=== PATIENT | female | born 1990 | race American Indian/Alaskan Native ===

== ENCOUNTER 2019-01-05 06:07 | Inpatient (IN) | payer OTHER ==
--- NOTE | 2019-01-05 07:51 | C.PDOC ---
History Of Present Illness 28 year old female with PMHx of HTN presents to the ED complaining of bilateral leg swelling. Reports her sister noticed the swelling a few weeks ago but she thought it would go away by walking. Denies any trauma, shortness of breath, chest pain, fever, chills, calf tenderness, or any other complaints. Reports she is noncompliant with HTN medications because she forgets. 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 State they are concerned because she has been noncompliant with medications for several weeks. Denies chest pain, SOB, numbness, weakness, vision changes, headache, dizziness. Time Seen by Provider: 01/05/19 07:13 Chief Complaint (Nursing): Lower Extremity Problem/Injury History Per: Patient History/Exam Limitations: no limitations Onset/Duration Of Symptoms: Days Current Symptoms Are (Timing): Still Present Past Medical History Reviewed: Historical Data, Nursing Documentation, Vital Signs Vital Signs: Last Vital Signs Temp 98.1 F 01/05/19 06:20 Pulse 84 01/05/19 06:20 Resp 14 01/05/19 06:20 BP 166/114 H 01/05/19 06:20 Pulse Ox 98 01/05/19 06:20 Primary Care Provider: Non [facility] Provider, - Medical History PMH: HTN Other PMH: Conn's disease Surgical History: No Surg Hx Family History: States: No Known Family Hx - Social History Hx Alcohol Use: No Hx Substance Use: No - Immunization History Hx Tetanus Toxoid Vaccination: Yes Hx Influenza Vaccination: No Hx Pneumococcal Vaccination: No Review Of Systems Except As Marked, All Systems Reviewed And Found Negative. Constitutional: Negative for: Fever, Chills Cardiovascular: Positive for: Edema (bilateral feet edema ). Negative for: Chest Pain Respiratory: Negative for: Cough, Shortness of Breath Gastrointestinal: Negative for: Nausea, Vomiting, Diarrhea Neurological: Negative for: Weakness, Numbness Physical Exam - Physical Exam Appears: Non-toxic, No Acute Distress Skin: Warm, Dry, No Rash Head: Atraumatic, Normacephalic Eye(s): bilateral: Normal Inspection, PERRL, EOMI Nose: Normal Oral Mucosa: Moist Throat: No Erythema, No Exudate Neck: Normal ROM, Supple Chest: Symmetrical, No Tenderness, No Ecchymosis, No Subcutaneous Emphysema Cardiovascular: Rhythm Regular, No Friction Rub, No Murmur Respiratory: Normal Breath Sounds, No Rales, No Rhonchi, No Wheezing Gastrointestinal/Abdominal: Soft, No Tenderness, No Guarding, No Rebound, Other (Obese ) Back: Normal Inspection, No CVA Tenderness Extremity: Pedal Edema (B/L), No Calf Tenderness, Capillary Refill (< 2 sec), No Deformity, No Swelling Extremity: Bilateral: Normal Color And Temperature, Normal ROM Pulses: Left Dorsalis Pedis: Normal, Right Dorsalis Pedis: Normal Neurological/Psych: Oriented x3, Normal Speech, Normal Motor Gait: Steady ED Course And Treatment - Laboratory Results Result Diagrams: 01/05/19 08:09 01/05/19 08:09 ECG: Interpreted By Me ECG Rhythm: Sinus Rhythm ECG Interpretation: Abnormal Interpretation Of ECG: inverted T waves in leads III, aVF, V2-V5 Rate From EC (bpm) O2 Sat by Pulse Oximetry: 98 (RA) Pulse Ox Interpretation: Normal - Radiology CXR: Interpreted by Me CXR Interpretation: Yes: Cardiomegaly. No: Infiltrates Medical Decision Making Medical Decision Making: Plan - EKG - CXR - Bloodwork BP was found to be elevated. Metoprolol PO and hydralazine IV ordered. The patient was found to have hypokalemia, PO K-Dur and IV potassium ordered. The patient refused IV potassium because she states it hurts too much. The p atient was found to have an abnormal EKG, inverted T waves in the lateral leads. Trop and Pro-BNP are WNLs. Aspirin ordered. Old records reviewed and there is no prior records or previous visits to compare. The case was discussed with Dr. Mejía who agrees to admit the patient to telemetry. Disposition - Disposition Disposition: HOSPITALIZED Disposition Time: 12:48 Condition: GUARDED - POA Present On Arrival: None - Clinical Impression Clinical Impression: Hypokalemia, Abnormal EKG, Hypertensive urgency - PA / PERFORMANCE ARCHITECT / Resident Statement MD/DO has reviewed & agrees with the documentation as recorded. - Scribe Statement The provider has reviewed the documentation as recorded by the Scribe Elke Paris All medical record entries made by the Scribe were at my direction and personally dictated by me. I have reviewed the chart and agree that the record accurately reflects my personal performance of the history, physical exam, medical decision making, and the department course for this patient. I have also personally directed, reviewed, and agree with the discharge instructions and disposition.
[2019-01-05 08:14] LABS: BASO # 0.1 K/uL (0.0-0.2); BASO % 1.5 % (0.0-2.0); EOS # 0.3 K/uL (0.0-0.7); EOS % 3.3 % (0.0-4.0); HEMOGLOBIN 11.2 g/dL (11.0-16.0); LYMPH # 3.2 K/uL (1.0-4.3); LYMPH % 39.8 % (20.0-40.0); MEAN CELL VOLUME 80.1 fL (81.0-99.0); MEAN CORPUSCULAR HEMOGLOBIN 27.3 pg (27.0-31.0); MEAN PLATELET VOLUME 8.1 fL (7.2-11.7); MONO # 0.5 K/uL (0.0-0.8); MONO % 6.5 % (0.0-10.0); NEUT % 48.9 % (50.0-75.0); NRBC % 0.1 % (0.0-2.0); RBC 4.12 Mil/uL (3.80-5.20); RED CELL DISTRIBUTION WIDTH 14.8 % (11.5-14.5); WHITE BLOOD COUNT 8.1 K/uL (4.8-10.8)
[2019-01-05 08:31] LABS: ALB/GLOB RATIO 1.1 (1.0-2.1); ALBUMIN 4.1 g/dL (3.5-5.0); ALT/SGPT 20 U/L (9-52); AST/SGOT 43 U/L (14-36); BLOOD UREA NITROGEN 17 mg/dL (7-17); CALCIUM 8.9 mg/dl (8.6-10.4); GFR NON-AFRICAN AMERICAN > 60
[2019-01-05 08:40] LABS: B-TYPE NATRIURETIC PEPTIDE 101 pg/mL (0-450)
--- NOTE | 2019-01-05 09:37 | RAD ---
Date of service: 01/05/2019 HISTORY: leg swelling COMPARISON: None available. TECHNIQUE: 1 view obtained. FINDINGS: LUNGS: Left basilar atelectasis. PLEURA: No significant pleural effusion identified, no pneumothorax apparent. CARDIOVASCULAR: Heart is enlarged. Aorta ectatic and uncoiled. No aortic atherosclerotic calcification present. OSSEOUS STRUCTURES: No significant abnormalities. VISUALIZED UPPER ABDOMEN: Normal. OTHER FINDINGS: None. IMPRESSION: Cardiomegaly. Left basilar atelectasis.
[2019-01-05] MEDS ORDERED: Metoprolol Succinate 50 mg XL Tab PO STA (10:16)
[2019-01-05] MEDS ORDERED: Potassium Chloride 20 mEq/15 ml LIQ UD PO STA (11:41)
[2019-01-05] MEDS ORDERED: Potassium Chloride 20 mEq/15 ml LIQ UD ONE (11:54)
[2019-01-05] MEDS: Potassium Chloride 20 mEq ER Tab PO SCH ×2 (12:54→17:20)
[2019-01-05] MEDS ORDERED: Potassium Chloride 20 mEq ER Tab PO ONE (12:55)
--- NOTE | 2019-01-05 13:30 | CP.PCM.HP ---
<José Chavez - Last Filed: 01/05/19 18:05> History of Present Illness - History of Present Illness History of Present Illness: H&P Hospitalist service CC "high blood pressure" HPI: Patient is a 28 year old female with history of Conn's syndrome who presents after patient has had persistent high blood pressure at home. Patient reportedly has not taken medication since November. She states she is unsure why she is not taking her medication, she states she is tired because she is taking care of her baby. She had her baby last August 2017, not currently . She denies fevers, chills, headache, dizziness, lightheadedness, chest pain, shortness of breath, palpitations, abdominal pain, nausea, vomiting, diarrhea, constipation, dysuria, urinary frequency, leg pain. Sister Jennifer states patient was brought in because of persistent high blood pressure. As per mother, on telephone, patient has a history of alcohol syndrome, the mental capacity of a 12-15 year old and finished high school. PMH: alcohol syndrome, Conn's disease, obstructive sleep apnea PSH: C section Home meds: uncertain Allergies: NKDA Social history: denies tobacco, alcohol, drug use. Lives with sisters. Not working, receives SSI. Family history: noncontributory Real Estate Rental Agent: Dr. Edwards Riveter: Dr. Ballesteros PMD: in [place] Present on Admission - Present on Admission Any Indicators Present on Admission: No Review of Systems - Constitutional Constitutional: absent: Chills, Fever, Headache - EENT Eyes: absent: Change in Vision Ears: absent: Tinnitus Nose/Mouth/Throat: absent: Nasal Congestion, Sore Throat - Cardiovascular Cardiovascular: absent: Chest Pain, Dyspnea, Lightheadedness, Palpitations - Respiratory Respiratory: absent: Cough, Dyspnea - Gastrointestinal Gastrointestinal: absent: Abdominal Pain, Constipation, Diarrhea, Nausea, Vomiting - Genitourinary Genitourinary: absent: Difficulty Urinating, Dysuria - Musculoskeletal Musculoskeletal: absent: Back Pain, Stiffness - Neurological Neurological: absent: Dizziness, Headaches, Syncope - Psychiatric Psychiatric: absent: Anxiety, Depression Past Patient History - Past Social History Smoking Status: Never Smoked - CARDIAC Hx Hypertension: Yes - PSYCHIATRIC Hx Substance Use: No Meds Allergies/Adverse Reactions: Allergies Allergy/AdvReac Type Severity Reaction Status Date / Time No Known Allergies Allergy Unverified 01/05/19 06:27 Physical Exam - Constitutional Appears: Well, Non-toxic, No Acute Distress - Head Exam Head Exam: ATRAUMATIC, NORMOCEPHALIC - Eye Exam Eye Exam: EOMI, PERRL - ENT Exam ENT Exam: Mucous Membranes Moist - Neck Exam Neck exam: Positive for: Full Rom. Negative for: Tenderness - Respiratory Exam Respiratory Exam: Decreased Breath Sounds. absent: Rhonchi, Wheezes, Respiratory Distress, Stridor - Cardiovascular Exam Cardiovascular Exam: REGULAR RHYTHM, +S1, +S2. absent: Gallop, Rubs, Systolic Murmur - GI/Abdominal Exam GI & Abdominal Exam: Normal Bowel Sounds, Soft. absent: Distended, Firm, Guarding (secondary to body habitus), Tenderness - Extremities Exam Extremities exam: Positive for: pedal edema, pedal pulses present. Negative for: calf tenderness - Back Exam Back exam: absent: CVA tenderness (L), CVA tenderness (R) - Neurological Exam Neurological exam: Alert, CN II-XII Intact, Oriented x3 - Skin Skin Exam: Dry, Intact, Warm Results - Vital Signs Recent Vital Signs: Last Vital Signs Temp 98.1 F 01/05/19 06:20 Pulse 78 01/05/19 13:05 Resp 18 01/05/19 13:05 BP 195/126 H 01/05/19 13:05 Pulse Ox 100 01/05/19 13:05 - Labs Result Diagrams: 01/05/19 08:09 01/05/19 08:09 Labs: Laboratory Results - last 24 hr 01/05/19 01/05/19 08:09 08:09 WBC 8.1 RBC 4.12 Hgb 11.2 Hct 33.0 L MCV 80.1 L MCH 27.3 MCHC 34.0 RDW 14.8 H Plt Count 373 MPV 8.1 Neut % (Auto) 48.9 L Lymph % (Auto) 39.8 [place] % (Auto) 6.5 Eos % (Auto) 3.3 Baso % (Auto) 1.5 Neut # (Auto) 4.0 Lymph # (Auto) 3.2 [place] # (Auto) 0.5 Eos # (Auto) 0.3 Baso # (Auto) 0.1 Sodium 142 Potassium 2.7 L Chloride 98 Carbon Dioxide 31 H Anion Gap 15 BUN 17 Creatinine 0.9 Est GFR ( Amer) > 60 Est GFR (Non-Af Amer) > 60 Random Glucose 103 Calcium 8.9 Total Bilirubin 0.5 AST 43 H ALT 20 Alkaline Phosphatase 90 Troponin I < 0.0120 NT-Pro-B Natriuret Pep 101 Total Protein 7.7 Albumin 4.1 Globulin 3.6 Albumin/Globulin Ratio 1.1 Assessment & Plan - Assessment and Plan (Free Text) Assessment: 28 year old female with history of Conn's disease, obstructive sleep apnea, who presents for elevated blood pressure. Plan: Elevated blood pressure Hypokalemia Likely secondary to Conn's syndrome Patient reportedly on Aldactone and Metoprolol at home. BP elevated in 170s Low K 2.7, repleted Continue to monitor K levels Norvasc 10mg PO daily Hydralazine 10mg IVP Q6 Metoprolol 25mg PO BID Riveter Dr. Law consulted, help appreciated Recommended holding Aldactone until confirmatory testing for hyperaldosteronism present ACTH, aldosterone, catecholamines, metanephrine, cortisol, renin pending Trigonometry Teacher Dr. Jorge consulted, help appreciated Cardiomegaly EKG SR 66 T wave inversions Initial troponin negative CXR: cardiomegaly, left basilar atelectasis. 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 Kym Chavez, PGY1 <Ayden Mejía H - Last Filed: 01/06/19 07:35> Results - Vital Signs Recent Vital Signs: Last Vital Signs Temp 98.7 F 01/06/19 03:19 Pulse 88 01/06/19 03:19 Resp 18 01/06/19 03:19 BP 161/100 H 01/06/19 03:19 Pulse Ox 97 01/05/19 23:05 - Labs Result Diagrams: 01/06/19 07:02 01/05/19 08:09 Labs: Laboratory Results - last 24 hr 01/05/19 01/05/19 01/05/19 08:09 08:09 08:09 WBC 8.1 RBC 4.12 Hgb 11.2 Hct 33.0 L MCV 80.1 L MCH 27.3 MCHC 34.0 RDW 14.8 H Plt Count 373 MPV 8.1 Neut % (Auto) 48.9 L Lymph % (Auto) 39.8 [place] % (Auto) 6.5 Eos % (Auto) 3.3 Baso % (Auto) 1.5 Neut # (Auto) 4.0 Lymph # (Auto) 3.2 [place] # (Auto) 0.5 Eos # (Auto) 0.3 Baso # (Auto) 0.1 Sodium 142 Potassium 2.7 L Chloride 98 Carbon Dioxide 31 H Anion Gap 15 BUN 17 Creatinine 0.9 Est GFR ( Amer) > 60 Est GFR (Non-Af Amer) > 60 POC Glucose (mg/dL) Random Glucose 103 Calcium 8.9 Magnesium 1.7 Total Bilirubin 0.5 AST 43 H ALT 20 Alkaline Phosphatase 90 Troponin I < 0.0120 NT-Pro-B Natriuret Pep 101 Total Protein 7.7 Albumin 4.1 Globulin 3.6 Albumin/Globulin Ratio 1.1 TSH 3rd Generation 3.21 Urine Color Urine Clarity Urine pH Ur Specific [place] Urine Protein Urine Glucose (UA) Urine Ketones Urine Blood Urine Nitrate Urine Bilirubin Urine Urobilinogen Ur Leukocyte Esterase Urine WBC (Auto) Urine RBC (Auto) Ur Squamous Epith Cells Urine HCG, Qual 01/05/19 01/05/19 01/05/19 14:09 16:18 20:52 WBC RBC Hgb Hct MCV MCH MCHC RDW Plt Count MPV Neut % (Auto) Lymph % (Auto) [place] % (Auto) Eos % (Auto) Baso % (Auto) Neut # (Auto) Lymph # (Auto) [place] # (Auto) Eos # (Auto) Baso # (Auto) Sodium Potassium Chloride Carbon Dioxide Anion Gap BUN Creatinine Est GFR ( Amer) Est GFR (Non-Af Amer) POC Glucose (mg/dL) 117 H 120 H Random Glucose Calcium Magnesium Total Bilirubin AST ALT Alkaline Phosphatase Troponin I NT-Pro-B Natriuret Pep Total Protein Albumin Globulin Albumin/Globulin Ratio TSH 3rd Generation Urine Color Straw Urine Clarity Clear Urine pH 8.0 Ur Specific [place] 1.006 Urine Protein Negative Urine Glucose (UA) Normal Urine Ketones Negative Urine Blood Negative Urine Nitrate Negative Urine Bilirubin Negative Urine Urobilinogen Normal Ur Leukocyte Esterase Neg Urine WBC (Auto) < 1 Urine RBC (Auto) 1 Ur Squamous Epith Cells 1 Urine HCG, Qual Negative 01/06/19 01/06/19 06:18 07:02 WBC 6.3 RBC 4.59 Hgb 12.4 Hct 36.8 MCV 80.1 L MCH 27.1 MCHC 33.8 RDW 15.2 H Plt Count 434 H MPV 8.2 Neut % (Auto) 54.6 Lymph % (Auto) 35.9 [place] % (Auto) 4.8 Eos % (Auto) 3.4 Baso % (Auto) 1.3 Neut # (Auto) 3.4 Lymph # (Auto) 2.3 [place] # (Auto) 0.3 Eos # (Auto) 0.2 Baso # (Auto) 0.1 Sodium Potassium Chloride Carbon Dioxide Anion Gap BUN Creatinine Est GFR ( Amer) Est GFR (Non-Af Amer) POC Glucose (mg/dL) 110 Random Glucose Calcium Magnesium Total Bilirubin AST ALT Alkaline Phosphatase Troponin I NT-Pro-B Natriuret Pep Total Protein Albumin Globulin Albumin/Globulin Ratio TSH 3rd Generation Urine Color Urine Clarity Urine pH Ur Specific [place] Urine Protein Urine Glucose (UA) Urine Ketones Urine Blood Urine Nitrate Urine Bilirubin Urine Urobilinogen Ur Leukocyte Esterase Urine WBC (Auto) Urine RBC (Auto) Ur Squamous Epith Cells Urine HCG, Qual Attending/Attestation - Attestation I have personally seen and examined this patient.: Yes I have fully participated in the care of the patient.: Yes I have reviewed all pertinent clinical information: Yes Notes (Text): 01/06/19 07:28 Medical attending: Patient was seen and examined by me with the hospital medical assistant. Reviewed the above and agree with the above note by the resident The patient was not in any acute distress. She denied chest pain, denied shortness of breath. However talking to the patient's sister and mother they explain that she has had HTN and low K since about age 10. Then when she was [age] years ago doctors diagnosed her with Conn Syndrome and she has been on Spironolactone. According to the family the patient has previously been taking medication and her BP at home was fine, however after a lot of stress she stopped taking and they found her blood pressure very high and so they brought her to the hospital. Patient is plesant and cooperative. 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 She has the personality of a 12 year old they explain. At this time we will check a serum Aldosterone, Renin, Cortisol, and also becaus e of her HTN and the CXRAY showing cardiomegaly (especially given her young age) we will also check a 2 decho as well. For the time being will use hydralazine IV as well and [facility] thank you Ayden Mejía 01/06/19 07:35
[2019-01-05 14:21] LABS: HCG,QUALITATIVE URINE NEGATIVE (NEGATIVE)
[2019-01-05 14:28] LABS: SQUAMOUS EPITHIAL 1 /hpf (0-5); URINE BILIRUBIN NEGATIVE (NEGATIVE); URINE BLOOD NEGATIVE (NEGATIVE); URINE CLARITY Clear (Clear); URINE COLOR Straw (YELLOW); URINE GLUCOSE (UA) NORMAL (Normal); URINE LEUKOCYTE ESTERASE NEG Leu/uL (Negative); URINE PROTEIN NEGATIVE (NEGATIVE); URINE UROBILINOGEN NORMAL mg/dL (0.2-1.0)
--- NOTE | 2019-01-06 03:22 | CON ---
DATE: 01/05/2019 ENDOCRINOLOGY CONSULTATION LOCATION: Room 552. HISTORY OF PRESENT ILLNESS: This is a 28-year-old female with known history of hypertension and Conn's syndrome as primary, who is also with recent drug omission of her antihypertensive medications and presenting here with generalized body weakness and headaches with accelerated hypertension, and is now being referred for endocrine evaluation and management. PAST MEDICAL HISTORY: As mentioned about, history of Conn's syndrome with malignant hypertension and was previously on antihypertensive medications which she discontinued in 11/2018. No further histories available as to the presence of an underlying adrenal adenoma, and this information has to be verified from previous hospital records. History of obstructive sleep apnea with underlying morbid obesity. She also has a known history of alcohol syndrome. FAMILY HISTORY: Positive for hypertension and heart disease. SOCIAL HISTORY: The patient has a supported family. No known substance abuse. She is actually mentally challenged as noted historically. REVIEW OF SYSTEMS: Admits to generalized body weakness with progressive bouts of dizziness and lightheadedness, worse on the day of admission. Also admits to episodic headaches especially in the occipital area as noted. Denies any visual changes otherwise. No chest pains or palpitations. Her oral intake has been variable with dyspepsia and vague upper abdominal pains. No recent alterations of bowel or urinary patterns. PHYSICAL EXAMINATION: GENERAL: This is an obese female in no apparent distress. VITAL SIGNS: Blood pressure of 160/100, pulse of 100 beats per minute and regular, temperature 98, respirations 20. Height is 5 feet 3, weight is 235 pounds. HEENT: Head, normocephalic. Eyes, anicteric with pink conjunctivae. Funduscopy not possible at this time. Ears, nose, and throat are otherwise normal. NECK: Supple. Thyroid gland is normal size. No carotid bruits or cervical adenopathy. CARDIOPULMONARY: Some adynamic precordium. S1 and S2 are rapid and regular. LUNGS: Clear to auscultation. ABDOMEN: Obese, soft with positive bowel sounds. EXTREMITIES: No peripheral edema. Pulses are +2 bilaterally. LABORATORY DATA: Her chemistry showed a BUN of 17, sodium 142, potassium 2.7, chloride 98, CO2 31, glucose 103, and creatinine 0.9. Her glucose levels have ranged from 117-120. Her TSH is 3.1, calcium 8.9, magnesium 1.7 with normal liver transaminases. ASSESSMENT: This is a 28-year-old female with known history of Conn's syndrome, presenting here with accelerated hypertension related to recent drug omission and is now being referred for endocrine evaluation and management. PLAN OF MANAGEMENT: We will obtain the biochemical and hormonal confirmation of the aforementioned, and we will obtain a plasma renin activity and plasma aldosterone level and also a plasma renin outdoor ratio as noted. We will obtain the previous medical records and determine the presence of any prior history of an underlying adrenal adenoma. We would recommend a CT of the otherwise. We would obtain serial chemistries and supplement accordingly as needed. We will reinforce the imperative need for adherence to an antihypertensive medications accordingly. We will follow. Theodora Jorge MD
[2019-01-06 07:16] LABS: BASO # 0.1 K/uL (0.0-0.2); BASO % 1.3 % (0.0-2.0); EOS # 0.2 K/uL (0.0-0.7); EOS % 3.4 % (0.0-4.0); HEMOGLOBIN 12.4 g/dL (11.0-16.0); LYMPH # 2.3 K/uL (1.0-4.3); LYMPH % 35.9 % (20.0-40.0); MEAN CELL VOLUME 80.1 fL (81.0-99.0); MEAN CORPUSCULAR HEMOGLOBIN 27.1 pg (27.0-31.0); MEAN CORPUSCULAR HGB CONC 33.8 g/dL (33.0-37.0); MEAN PLATELET VOLUME 8.2 fL (7.2-11.7); MONO # 0.3 K/uL (0.0-0.8); MONO % 4.8 % (0.0-10.0); NEUT # 3.4 K/uL (1.8-7.0); NEUT % 54.6 % (50.0-75.0); RBC 4.59 Mil/uL (3.80-5.20); RED CELL DISTRIBUTION WIDTH 15.2 % (11.5-14.5); WHITE BLOOD COUNT 6.3 K/uL (4.8-10.8)
[2019-01-06 07:40] LABS: ALT/SGPT 19 U/L (9-52); AST/SGOT 15 U/L (14-36); BLOOD UREA NITROGEN 13 mg/dL (7-17); CALCIUM 9.3 mg/dl (8.6-10.4); GFR NON-AFRICAN AMERICAN > 60
--- NOTE | 2019-01-06 07:44 | CP.PCM.PN ---
<José Chavez - Last Filed: 01/06/19 15:53> Subjective - Date & Time of Evaluation Date of Evaluation: 01/06/19 Time of Evaluation: 07:44 - Subjective Subjective: Progress Note for Dr. Mejía Patient seen and examined at bedside. She states she has persistent headache despite trying Tylenol and Motrin. She states the light bothers her eyes, but She also complains of diffuse body aches that started last night. She admits to feeling chills, and states she has been urinating every hour, but denies burning. She states she feels a little nauseated, but has not vomited. She complains of leg pain, but then complains of diffuse body pain. She denies shortness of breath, palpitations, neck pain, abdominal pain, diarrhea, constipation. Objective - Vital Signs/Intake and Output Vital Signs (last 24 hours): Temp Pulse Resp BP Pulse Ox 98.7 F 88 18 161/100 H 97 01/06/19 03:19 01/06/19 03:19 01/06/19 03:19 01/06/19 03:19 01/05/19 23:05 Intake and Output: 01/06/19 01/06/19 06:59 18:59 Intake Total 300 Balance 300 - Medications Medications: Current Medications Acetaminophen (Tylenol 325mg Tab) 650 mg PO Q6 PRN PRN Reason: Pain, moderate (4-7) Last Admin: 01/06/19 03:22 Dose: 650 mg Amlodipine Besylate (Norvasc) 10 mg PO DAILY [facility] Last Admin: 01/05/19 14:15 Dose: 10 mg Heparin Sodium (Porcine) (Heparin) 5,000 units SC Q8 [facility] Last Admin: 01/06/19 05:59 Dose: Not Given Hydralazine HCl (Apresoline) 10 mg IVP Q6H [facility] Last Admin: 01/06/19 01:45 Dose: 10 mg Metoprolol Tartrate (Lopressor) 25 mg PO BID [facility] Last Admin: 01/05/19 17:20 Dose: 25 mg - Labs Labs: 01/06/19 07:02 01/06/19 07:02 - Constitutional Appears: Other (Patient is lying in bed, appears to be uncomfortable, not opening her eyes stating that the light bothers her eyes. ) - Head Exam Head Exam: ATRAUMATIC, NORMOCEPHALIC - Eye Exam Eye Exam: EOMI, PERRL Additional comments: Not opening eyes too much since patient states that the light makes her headache worse. - ENT Exam ENT Exam: Mucous Membranes Dry - Neck Exam Neck Exam: Full ROM. absent: Tenderness - Respiratory Exam Respiratory Exam: Decreased Breath Sounds. absent: Rales, Rhonchi, Wheezes, Respiratory Distress, Stridor - Cardiovascular Exam Cardiovascular Exam: REGULAR RHYTHM, +S1, +S2. absent: Gallop, Rubs, Murmur - GI/Abdominal Exam GI & Abdominal Exam: Soft, Normal Bowel Sounds. 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 Plan: Elevated blood pressure Hypokalemia Likely secondary to Conn's syndrome Patient reportedly on Aldactone and Metoprolol at home. BP elevated in 180/114 Low K 2.7, repleted with 40mEq PO and 40mEq IV Continue to monitor K levels Norvasc 10mg PO daily Hydralazine 10mg IVP Q6 PRN Hydralazine 25mg PO TID Metoprolol 25mg PO BID [employer] Patrol Officer Dr. Law consulted, help appreciated Recommended holding Aldactone until confirmatory testing for hyperaldosteronism present Plan on salt loading patient to test 24 hour urine aldosterone level. Pending Renal Artery duplex ACTH, aldosterone, catecholamines, metanephrine, renin pending Cnc Technician Dr. Jorge consulted, help appreciated Cortisol AM low 2.1, repeat cortisol tomorrow morning Cardiomegaly EKG SR 66 T wave inversions Initial troponin negative CXR: cardiomegaly, left basilar atelectasis. Follow up ECHO A1c pending TSH 1.77, T4 11.4 high Follow up CXR in AM Headache, possibly secondary to Conn's syndrome Patient received Tylenol, Motrin CT head: no acute intracranial pathology, mucosal thickening of left greater than right ethmoid air cells. Generalized body aches Follow up CPK level K low at 2.7, repleted with 40mEq PO and 40mEq IV. 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 Kym Chavez, PGY1 <Ayden Mejía H - Last Filed: 01/06/19 16:16> Objective - Vital Signs/Intake and Output Vital Signs (last 24 hours): Temp Pulse Resp BP Pulse Ox 97.9 F 87 20 150/112 H 96 01/06/19 07:00 01/06/19 14:09 01/06/19 07:00 01/06/19 14:09 01/06/19 07:00 Intake and Output: 01/06/19 01/06/19 06:59 18:59 Intake Total 300 500 Balance 300 500 - Medications Medications: Current Medications Acetaminophen (Tylenol 325mg Tab) 650 mg PO Q6 PRN PRN Reason: Pain, moderate (4-7) Last Admin: 01/06/19 09:29 Dose: 650 mg Amlodipine Besylate (Norvasc) 10 mg PO DAILY [facility] Last Admin: 01/06/19 09:28 Dose: 10 mg Heparin Sodium (Porcine) (Heparin) 5,000 units SC Q8 [facility] Last Admin: 01/06/19 14:03 Dose: 5,000 units Hydralazine HCl (Apresoline) 25 mg PO TID [facility] Last Admin: 01/06/19 14:03 Dose: 25 mg Hydralazine HCl (Apresoline) 10 mg IVP Q6H PRN PRN Reason: Systolic Blood Pressure Potassium Chloride 40 meq/ (Sodium Chloride) 1,020 mls @ 75 mls/hr IV .[id number] [facility] Stop: 01/07/19 17:09 Metoprolol Tartrate (Lopressor) 25 mg PO BID [facility] Last Admin: 01/06/19 09:29 Dose: 25 mg - Labs Labs: 01/06/19 07:02 01/06/19 07:02 Attending/Attestation - Attestation I have personally seen and examined this patient.: Yes I have fully participated in the care of the patient.: Yes I have reviewed all pertinent clinical information, including history, physical exam and plan: Yes Notes (Text): 01/06/19 16:07 Medical attending: Patient was seen and examined by me with the medical delivery technician. Reviewed the above note by the resident and agree with the above The BP was still elevated and we added on Hydralazine PO TID. Also we are pen ding the lab work for aldosterone, renin at this moment. She is being evaluated by endocrinology and nephrology at this time and she is being tried on NSS IVF. Because of the cardiolomegaly will check a CXRAY tomorrow for potential overload The patient also had a 2D echo done this morning. Pending results at this time. The patient has reportedly had HTN since age 10 Ayden Mejía
[2019-01-06] MEDS ORDERED: Potassium Chloride 20 mEq ER Tab PO ONE (09:15)
--- NOTE | 2019-01-06 11:07 | CT ---
Date of service: 01/06/2019 PROCEDURE: CT HEAD WITHOUT CONTRAST. HISTORY: headache COMPARISON: None available. TECHNIQUE: Axial computed tomography images were obtained through the head/brain without intravenous contrast. Radiation dose: Total exam DLP = 898.37 mGy-cm. This CT exam was performed using one or more of the following dose reduction techniques: Automated exposure control, adjustment of the mA and/or kV according to patient size, and/or use of iterative reconstruction technique. FINDINGS: HEMORRHAGE: No intracranial hemorrhage. BRAIN: No mass effect or edema. The garrett-white matter differentiation appears intact. Please note that MRI with diffusion imaging is more sensitive in the detection of acute ischemic event. VENTRICLES: No hydrocephalus. CALVARIUM: Unremarkable. PARANASAL SINUSES: Mucosal thickening of the left greater than right ethmoid air cells. MASTOID AIR CELLS: Unremarkable as visualized. No inflammatory changes. OTHER FINDINGS: Partial opacification of the left external auditory canal, likely cerumen. IMPRESSION: No acute intracranial pathology identified. Mucosal thickening of the left greater than right ethmoid air cells.
--- NOTE | 2019-01-06 11:24 | CP.PCM.PN ---
Subjective - Date & Time of Evaluation Date of Evaluation: 01/06/19 Time of Evaluation: 11:21 - Subjective Subjective: PGY-[address] Law, nephro Pt tolerated diet. Had frontal FERNANDEZ and generalized body ache x 1 day, improved by tylenol. C/O "a lot of urination", denies dysuria, blood in urine Objective - Vital Signs/Intake and Output Vital Signs (last 24 hours): Temp Pulse Resp BP Pulse Ox 97.9 F 90 20 150/94 H 96 01/06/19 07:00 01/06/19 09:24 01/06/19 07:00 01/06/19 09:29 01/06/19 07:00 Intake and Output: 01/06/19 01/06/19 06:59 18:59 Intake Total 300 Balance 300 - Medications Medications: Current Medications Acetaminophen (Tylenol 325mg Tab) 650 mg PO Q6 PRN PRN Reason: Pain, moderate (4-7) Last Admin: 01/06/19 09:29 Dose: 650 mg Amlodipine Besylate (Norvasc) [address] [facility] Last Admin: 01/06/19 09:28 Dose: 10 mg Heparin Sodium (Porcine) (Heparin) 5,[address] [facility] Last Admin: 01/06/19 05:59 Dose: Not Given Hydralazine HCl (Apresoline) [address] [facility] Last Admin: 01/06/19 08:07 Dose: 10 mg Potassium Chloride (Potassium Chloride 20 Meq/100 Ml) 20 meq in 100 mls @ 50 mls/hr IVPB Q2 [facility] Stop: 01/06/19 13:59 Last Admin: 01/06/19 09:27 Dose: 50 mls/hr Metoprolol Tartrate (Lopressor) [address] [facility] Last Admin: 01/06/19 09:29 Dose: 25 mg - Labs Labs: 01/06/19 07:02 01/06/19 07:02 - Constitutional Appears: No Acute Distress - Head Exam Head Exam: ATRAUMATIC, NORMAL INSPECTION, NORMOCEPHALIC - Eye Exam Eye Exam: EOMI, Normal appearance, PERRL. absent: Scleral icterus Pupil Exam: NORMAL ACCOMODATION - ENT Exam ENT Exam: Mucous Membranes Moist Additional comments: maxillary and frontal tenderness - Neck Exam Additional comments: supple - Respiratory Exam Respiratory Exam: Clear to Ausculation Bilateral. absent: Rales, Rhonchi, Wheezes - Cardiovascular Exam Cardiovascular Exam: REGULAR RHYTHM, +S1, +S2 - GI/Abdominal Exam GI & Abdominal Exam: Soft, Normal Bowel Sounds. absent: Guarding, Rigid, Tenderness Additional comments: No suprapubic tenderess - Extremities Exam Extremities Exam: Pedal Edema. absent: Calf Tenderness - Back Exam Back Exam: absent: CVA tenderness (L), CVA tenderness (R) - Neurological Exam Neurological Exam: Alert, Awake, Oriented x3 - Psychiatric Exam Psychiatric exam: Normal Affect, Normal Mood - Skin Skin Exam: Dry, Warm Assessment and Plan - Assessment and Plan (Free Text) Plan: Ms Celis, 28F, with PMHx Conn's syndrome (Dx 1 year ago but have HTN/low K since 10 y/o), Hx alcohol syndrome with developmental delay, admitted for persistent high blood pressure. Not taking meds x 1 month due to stress from taking care of 1-year old baby. (1) Persistent HTN - improving Likely secondary Now on Metoprolol 25 BID, Norvasc 10, hydralazine PRN Aldosterone:renin: pending____ Cortisol, low at 2.1. Will repeat it at 8AM tomorrow___ TSH normal/high Total T4, questionable sick euthyroid CXR: cardiomegaly Echo: Pending____ (2) HypoK 2.7 and alkalotic with bicarb 29 replete K PRN Continue to trend (3) Questionable Conn's syndrome Will call outpt nephro to get record NS @ 75 to salt load Will get 24 hour U(aldosterone) tomorrow (4) Generalized body ache in the setting of low K CK level, U/A pending___ s/r/d/w Dr Law
[2019-01-06] MEDS ORDERED: Potassium Chloride 20 mEq/15 ml LIQ UD PO STA (12:53)
[2019-01-06] MEDS ORDERED: Sodium Chloride 0.9% 1,000 ML IV SCH (14:30)
--- NOTE | 2019-01-06 15:19 | CP.PCM.CON ---
History of Present Illness - History of Present Illness History of Present Illness: PGY-[address] Law Nephro consult: HTN, low K, ?Conn's Ms Lalita, 28F, with history of ARIELLA, alcohol syndrome with developme ntal delay, Conn's syndrome diagnosed while 2 and 1/2 years ago (HTN/low K since 10 yo), came in for persistent high blood pressure. Pt did not take her medicine x 1 month due to stress taking care of baby. Pt is not currently breast-feeding. Pt started to have sinus headache and general body aches since last night. ROS: (+) mild headache and generalized body ache (+) frequent urination Denies F/C, CP, SOB, N/V/D/C, dysuria, change in urine color PMH: alcohol syndrome (finished high school), Conn's disease, obstructive sleep apnea PSH: C section Family history: noncontributory Social history: denies tobacco, alcohol, drug use. Lives with sisters. Not working, receives SSI. All: NKDA Home meds: uncertain Commander Internal Affairs: Dr. Edwards Garment Turner: Dr. Tubbs [phone] PMD: Not in [place]. ? in [place] Past Patient History - Past Medical History & Family History Past Medical History?: Yes - Past Social History Smoking Status: Never Smoked - CARDIAC Hx Hypertension: Yes - ENDOCRINE/METABOLIC Other/Comment: Conn's Disease - MUSCULOSKELETAL/RHEUMATOLOGICAL Hx Falls: No - PSYCHIATRIC Hx Substance Use: No Meds Allergies/Adverse Reactions: Allergies Allergy/AdvReac Type Severity Reaction Status Date / Time No Known Allergies Allergy Unverified 01/05/19 06:27 - Medications Medications: Current Medications Acetaminophen (Tylenol 325mg Tab) 650 mg PO Q6 PRN PRN Reason: Pain, moderate (4-7) Last Admin: 01/06/19 09:29 Dose: 650 mg Amlodipine Besylate (Norvasc) 10 mg PO DAILY [facility] Last Admin: 01/06/19 09:28 Dose: 10 mg Heparin Sodium (Porcine) (Heparin) 5,000 units SC Q8 [facility] Last Admin: 01/06/19 14:03 Dose: 5,000 units Hydralazine HCl (Apresoline) 25 mg PO TID [facility] Last Admin: 01/06/19 14:03 Dose: 25 mg Hydralazine HCl (Apresoline) 10 mg IVP Q6H PRN PRN Reason: Systolic Blood Pressure Potassium Chloride 40 meq/ (Sodium Chloride) 1,020 mls @ 75 mls/hr IV .[id number] [facility] Stop: 01/07/19 17:09 Metoprolol Tartrate (Lopressor) 25 mg PO BID [facility] Last Admin: 01/06/19 09:29 Dose: 25 mg Physical Exam - Constitutional Appears: No Acute Distress - Head Exam Head Exam: ATRAUMATIC, NORMAL INSPECTION, NORMOCEPHALIC - Eye Exam Eye Exam: EOMI, Normal appearance, PERRL. absent: Scleral icterus Pupil Exam: NORMAL ACCOMODATION - ENT Exam ENT Exam: Mucous Membranes Moist - Neck Exam Additional comments: supple, no jvd - Respiratory Exam Respiratory Exam: Clear to Auscultation Bilateral. absent: Rales, Rhonchi, W heezes - Cardiovascular Exam Cardiovascular Exam: REGULAR RHYTHM, +S1, +S2 - GI/Abdominal Exam GI & Abdominal Exam: Normal Bowel Sounds, Soft. absent: Tenderness - Extremities Exam Extremities exam: Positive for: pedal edema, tenderness (all upper and lower leg b/l), pedal pulses present. Negative for: calf tenderness - Back Exam Back exam: absent: CVA tenderness (L), CVA tenderness (R) - Neurological Exam Neurological exam: Alert, CN II-XII Intact, Oriented x3 - Psychiatric Exam Psychiatric exam: Normal Affect, Normal Mood - Skin Skin Exam: Dry, Warm Results - Vital Signs Recent Vital Signs: Last Vital Signs Temp 97.9 F 01/06/19 07:00 Pulse 87 01/06/19 14:09 Resp 20 01/06/19 07:00 BP 150/112 H 01/06/19 14:09 Pulse Ox 96 01/06/19 07:00 - Labs Result Diagrams: 01/06/19 07:02 01/06/19 07:02 Labs: Laboratory Results - last 24 hr 01/05/19 01/05/19 01/05/19 08:09 16:18 20:52 WBC RBC Hgb Hct MCV MCH MCHC RDW Plt Count MPV Neut % (Auto) Lymph % (Auto) [place] % (Auto) Eos % (Auto) Baso % (Auto) Neut # (Auto) Lymph # (Auto) [place] # (Auto) Eos # (Auto) Baso # (Auto) Sodium Potassium Chloride Carbon Dioxide Anion Gap BUN Creatinine Est GFR ( Amer) Est GFR (Non-Af Amer) POC Glucose (mg/dL) 117 H 120 H Random Glucose Calcium Phosphorus Magnesium Total Bilirubin AST ALT Alkaline Phosphatase Total Protein Albumin Globulin Albumin/Globulin Ratio Thyroxine (T4) TSH 3rd Generation 3.21 Cortisol AM Sample 01/06/19 01/06/19 01/06/19 06:18 07:02 07:02 WBC 6.3 RBC 4.59 Hgb 12.4 Hct 36.8 MCV 80.1 L MCH 27.1 MCHC 33.8 RDW 15.2 H Plt Count 434 H MPV 8.2 Neut % (Auto) 54.6 Lymph % (Auto) 35.9 [place] % (Auto) 4.8 Eos % (Auto) 3.4 Baso % (Auto) 1.3 Neut # (Auto) 3.4 Lymph # (Auto) 2.3 [place] # (Auto) 0.3 Eos # (Auto) 0.2 Baso # (Auto) 0.1 Sodium 142 Potassium 2.7 L Chloride 100 Carbon Dioxide 29 Anion Gap 16 BUN 13 Creatinine 0.9 Est GFR ( Amer) > 60 Est GFR (Non-Af Amer) > 60 POC Glucose (mg/dL) 110 Random Glucose 104 Calcium 9.3 Phosphorus 3.3 Magnesium 1.8 Total Bilirubin 0.6 AST 15 ALT 19 Alkaline Phosphatase 89 Total Protein 7.9 Albumin 4.0 Globulin 4.0 H Albumin/Globulin Ratio 1.0 Thyroxine (T4) 11.4 H TSH 3rd Generation 1.77 Cortisol AM Sample 01/06/19 07:02 WBC RBC Hgb Hct MCV MCH MCHC RDW Plt Count MPV Neut % (Auto) Lymph % (Auto) [place] % (Auto) Eos % (Auto) Baso % (Auto) Neut # (Auto) Lymph # (Auto) [place] # (Auto) Eos # (Auto) Baso # (Auto) Sodium Potassium Chloride Carbon Dioxide Anion Gap BUN Creatinine Est GFR ( Amer) Est GFR (Non-Af Amer) POC Glucose (mg/dL) Random Glucose Calcium Phosphorus Magnesium Total Bilirubin AST ALT Alkaline Phosphatase Total Protein Albumin Globulin Albumin/Globulin Ratio Thyroxine (T4) TSH 3rd Generation Cortisol AM Sample 2.1 L Assessment & Plan - Assessment and Plan (Free Text) Plan: Ms Celis, 28F, with PMHx Conn's syndrome (Dx 1 year ago but have HTN/low K since 10 y/o), Hx alcohol syndrome with developmental delay, admitted for persistent high blood pressure. Not taking meds x 1 month due to stress from taking care of 1-year old baby. (1) Persistent HTN - improving Likely secondary Now on Metoprolol 25 BID, Norvasc 10, hydralazine PRN Aldosterone:renin: pending____ Cortisol, low at 2.1. Will repeat it at 8AM tomorrow___ TSH normal/high Total T4, questionable sick euthyroid CXR: cardiomegaly Echo: Pending____ (2) HypoK 2.7 and alkalotic with bicarb 29 replete K PRN Continue to trend (3) Questionable Conn's syndrome Will call outpt nephro to get record NS @ 75 to salt load Will get 24 hour U(aldosterone) tomorrow (4) Generalized body ache in the setting of low K CK level, U/A pending___ s/r/d/w Dr Law
--- NOTE | 2019-01-06 17:01 | CARD ---
APPROVED REPORT Date of service: 01/06/2019 EXAM: Two-dimensional and M-mode echocardiogram with Doppler and color Doppler. Other Information Quality : TDSRhythm : INDICATION Abnormal EKG/Arrhythmia 2D DIMENSIONS IVSd1.2 (0.7-1.1cm)LVDd5.1 (3.9-5.9cm) PWd1.2 (0.7-1.1cm)LA Slgbnv27 (18-58mL) LVDs3.1 (2.5-4.0cm)FS (%) 38.2 % LVEF (%)68.2 (>50%)LVEF (Johnson's)68.11 % M-Mode DIMENSIONS Left Atrium (MM)3.08 (2.5-4.0cm)IVSd1.33 (0.7-1.1cm) Aortic Root3.30 (2.2-3.7cm)LVDd5.76 (4.0-5.6cm) Aortic Cusp Exc.1.97 (1.5-2.0cm)PWd1.13 (0.7-1.1cm) FS (%) 37 %LVDs3.63 (2.0-3.8cm) LVEF (%)66 (>50%) Mitral Valve MV E Noqscbet82.3cm/sMV A Crbpjgak725.2cm/sE/A ratio0.8 TDI Lateral E' Peak V9.38cm/sMedial E' Peak V5.84cm/sE/Lateral E'9.2 E/Medial E'14.8 Tricuspid Valve TR Peak Hrwiinyp481dm/sTR Peak [id number] LEFT VENTRICLE The left ventricle is normal size. There is mild to moderate concentric left ventricular hypertrophy. The left ventricular function is normal. The left ventricular ejection fraction is within the normal range. There is normal LV segmental wall motion. Transmitral Doppler flow pattern is abnormal. RIGHT VENTRICLE The right ventricle is normal size. ATRIA The left atrium size is normal. The right atrium size is normal. AORTIC VALVE The aortic valve is normal in structure. MITRAL VALVE Mitral regurgitation is trace. TRICUSPID VALVE There is mild tricuspid regurgitation. <Conclusion> Normal LV systoloc function. Normal chamber size. LVH with diastolic dysfunction. Trace MR. Mild TR.
--- NOTE | 2019-01-06 17:51 | CARD ---
APPROVED REPORT Date of service: 01/05/2019 EKG Measurement Heart [id number] <Conclusion> Normal sinus rhythm with sinus arrhythmia T wave abnormality, consider inferior ischemia T wave abnormality, consider anterolateral ischemia Prolonged QT Abnormal ECG
[2019-01-06 18:31] LABS: BLOOD UREA NITROGEN 13 mg/dL (7-17); CALCIUM 9.1 mg/dl (8.6-10.4); GFR NON-AFRICAN AMERICAN > 60
--- NOTE | 2019-01-06 21:21 | PN ---
DATE: 01/06/2019 ENDOCRINOLOGY FOLLOWUP NOTE LOCATION: Room 552. SUBJECTIVE: This is a 28-year-old female with a known history of Conn's syndrome with persistent accelerated hypertension related to drug omission and is now being followed closely for metabolic management. LABORATORY DATA: Her repeat chemistries today showed the BUN of 13, sodium 142, potassium 2.7, chloride 100, CO2 of 29, glucose 104, and creatinine 0.9. Her repeat thyroid studies showed a T4 of 11.4 with TSH of 1.77. Her serum cortisol is 2.1 mcg/dL. Her magnesium is 1.8 with an albumin of 4. ASSESSMENT: This is a 28-year-old female with known history of Conn's syndrome, persistent hypokalemia, presenting here with accelerated hypertension and generalized body weakness with headaches and episodic dizziness and lightheadedness and is now being followed closely for metabolic management. The most likely etiology of the aforementioned Conn's syndrome is an underlying benign adrenal adenoma causing an extreme production of aldosterone levels, which is currently confirmed with aforementioned hormonal profile sent off today. PLAN OF MANAGEMENT: We would pursue a CAT scan of the adrenals and/or more expansive but more precise MRI of the adrenals as indicated since we need to document the presence of an underlying adrenal tumor causing the aforementioned. I reviewed the previous records. I could not find any supporting documentation from previous radiologic procedures otherwise. We will highly recommend that they pursue a CAT scan and/or an MRI of the adrenals as indicated. We will continue the potassium supplementation as given and also continue the serial chemistries and supplement accordingly as needed. We will consider Cortrosyn stimulation test if the repeat cortisol levels remain low as noted. We will obtain serial chemistries and supplement accordingly as needed. We will follow. Theodora Jorge MD
[2019-01-07] MEDS: Sodium Chloride 0.9% 1,000 ML IV SCH ×2 (01:00→10:23)
--- NOTE | 2019-01-07 07:11 | CP.PCM.PN ---
<Hemanth Hernandes - Last Filed: 01/07/19 11:30> Subjective - Date & Time of Evaluation Date of Evaluation: 01/07/19 Time of Evaluation: 07:11 - Subjective Subjective: PGY-1 Medicine progress note for Dr. Mejía Patient seen and examined at bedside. No acute events overnight. Patient is complaining of a headache. She is also refusing IV potassium due pain in IV site. She denies fevers, chills, shortness of breath, chest pain, abdominal pain, nausea, vomiting, diarrhea, constipation, or urinary symptoms. Objective - Vital Signs/Intake and Output Vital Signs (last 24 hours): Temp Pulse Resp BP Pulse Ox 98.4 F 85 20 157/100 H 96 01/06/19 23:47 01/07/19 02:14 01/06/19 23:47 01/06/19 23:47 01/06/19 23:47 - Medications Medications: Current Medications Acetaminophen (Tylenol 325mg Tab) 650 mg PO Q6 PRN PRN Reason: Pain, moderate (4-7) Last Admin: 01/06/19 17:35 Dose: 650 mg Amlodipine Besylate (Norvasc) 10 mg PO DAILY [facility] Last Admin: 01/06/19 09:28 Dose: 10 mg Heparin Sodium (Porcine) (Heparin) 5,000 units SC Q8 [facility] Last Admin: 01/07/19 06:54 Dose: Not Given Hydralazine HCl (Apresoline) 10 mg IVP Q6H PRN PRN Reason: Systolic Blood Pressure Hydralazine HCl (Apresoline) 50 mg PO Q8H [facility] Last Admin: 01/07/19 06:48 Dose: 50 mg Potassium Chloride 40 meq/ (Sodium Chloride) 1,020 mls @ 75 mls/hr IV .[id number] [facility] Stop: 01/07/19 17:09 Last Admin: 01/06/19 16:09 Dose: 75 mls/hr Magnesium Oxide (Mag-Ox) 400 mg PO ONCE ONE Stop: 01/07/19 20:01 Metoprolol Tartrate (Lopressor) 25 mg PO BID [facility] Last Admin: 01/06/19 17:34 Dose: 25 mg Potassium Chloride (K-Dur 20 Meq Er Tab) 20 meq PO ONCE ONE Stop: 01/07/19 20:01 - Labs Labs: 01/06/19 07:02 01/06/19 18:13 - Additional Findings Additional findings: - Constitutional Appears: Comfortable. Not in acute distress. - Head Exam Head Exam: ATRAUMATIC, NORMOCEPHALIC - Eye Exam Eye Exam: EOMI, PERRL - ENT Exam ENT Exam: Mucous Membranes Dry - Neck Exam Neck Exam: Full ROM. absent: Tenderness - Respiratory Exam Respiratory Exam: Decreased Breath Sounds. absent: Rales, Rhonchi, Wheezes, Respiratory Distress, Stridor - Cardiovascular Exam Cardiovascular Exam: REGULAR RHYTHM, +S1, +S2. absent: Gallop, Rubs, Murmur - GI/Abdominal Exam GI & Abdominal Exam: Soft, Normal Bowel Sounds. 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 Law consulted, help appreciated Recommended holding Aldactone until confirmatory testing for hyperaldosteronism present Plan on salt loading patient to test 24 hour urine aldosterone level. Pending Renal Artery duplex ACTH, aldosterone, catecholamines, metanephrine, renin pending CT abd/pelvis with and without IV contrast pending [employer] Device Scientist Dr. Jorge consulted, help appreciated Cortisol AM low 3.6 Cardiomegaly, chronic EKG SR 66 T wave inversions CXR: cardiomegaly, left basilar atelectasis. Repeat CXR pending read ECHO: LVEF: > 55%, LVH with diastolic dysfunction A1c pending TSH 1.77, T4 11.4 high Headache, possibly secondary to Conn's syndrome Tylenol PRN CT head: no acute intracranial pathology, mucosal thickening of left greater t zabala right ethmoid air cells. 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 Mejía. Hemanth Hernandes, PGY-1 <Ayden Mejía H - Last Filed: 01/07/19 14:26> Objective - Vital Signs/Intake and Output Vital Signs (last 24 hours): Temp Pulse Resp BP Pulse Ox 98.4 F 81 20 168/88 H 95 01/07/19 07:00 01/07/19 12:34 01/07/19 07:00 01/07/19 10:18 01/07/19 07:00 Intake and Output: 01/07/19 01/07/19 06:59 18:59 Intake Total 700 Balance 700 - Medications Medications: Current Medications Acetaminophen (Tylenol 325mg Tab) 650 mg PO Q6 PRN PRN Reason: Pain, moderate (4-7) Last Admin: 01/06/19 17:35 Dose: 650 mg Amlodipine Besylate (Norvasc) 10 mg PO DAILY [facility] Last Admin: 01/07/19 10:18 Dose: 10 mg Heparin Sodium (Porcine) (Heparin) 5,000 units SC Q8 [facility] Last Admin: 01/07/19 06:54 Dose: Not Given Hydralazine HCl (Apresoline) 10 mg IVP Q6H PRN PRN Reason: Systolic Blood Pressure Hydralazine HCl (Apresoline) 50 mg PO Q8H [facility] Last Admin: 01/07/19 13:14 Dose: 50 mg Sodium Chloride (Sodium Chloride 0.9%) 1,000 mls @ 75 mls/hr IV .[id number] [facility] Stop: 01/08/19 12:39 Last Admin: 01/07/19 10:23 Dose: 75 mls/hr Metoprolol Tartrate (Lopressor) 25 mg PO BID [facility] Last Admin: 01/07/19 10:18 Dose: 25 mg - Labs Labs: 01/07/19 08:00 01/07/19 08:00 Attending/Attestation - Attestation I have personally seen and examined this patient.: Yes I have fully participated in the care of the patient.: Yes I have reviewed all pertinent clinical information, including history, physical exam and plan: Yes Notes (Text): 01/07/19 14:21 Medical attending: Patient was seen and examined by me. Agree with the above note by the resident The patient was not in any acute distress when we came and saw today Blood pressure is less than previous We are pending Aldosterone, Renin and further studies ordered nephrology as well There is a CT of the abdomen and pelvis ordered to further assess the adrenal gland as well Ayden Mejía
[2019-01-07 08:08] LABS: BASO # 0.2 K/uL (0.0-0.2); BASO % 2.7 % (0.0-2.0); EOS # 0.3 K/uL (0.0-0.7); EOS % 3.8 % (0.0-4.0); LYMPH % 47.1 % (20.0-40.0); MEAN CELL VOLUME 80.3 fL (81.0-99.0); MEAN CORPUSCULAR HEMOGLOBIN 26.9 pg (27.0-31.0); MEAN CORPUSCULAR HGB CONC 33.5 g/dL (33.0-37.0); MONO # 0.4 K/uL (0.0-0.8); NEUT # 3.6 K/uL (1.8-7.0); NEUT % 41.4 % (50.0-75.0); RBC 4.83 Mil/uL (3.80-5.20); RED CELL DISTRIBUTION WIDTH 15.4 % (11.5-14.5); WHITE BLOOD COUNT 8.6 K/uL (4.8-10.8)
[2019-01-07 08:30] LABS: ALB/GLOB RATIO 1.1 (1.0-2.1); ALBUMIN 4.4 g/dL (3.5-5.0); ALT/SGPT 9 U/L (9-52); AST/SGOT 16 U/L (14-36); BLOOD UREA NITROGEN 16 mg/dL (7-17); CALCIUM 9.1 mg/dl (8.6-10.4); GFR NON-AFRICAN AMERICAN > 60
[2019-01-07] MEDS ORDERED: Potassium Chloride 20 mEq/15 ml LIQ UD PO ONE ×3 (09:04→13:15)
--- NOTE | 2019-01-07 11:23 | CP.PCM.PN ---
<Dyan Bello - Last Filed: 01/07/19 13:47> Subjective - Date & Time of Evaluation Date of Evaluation: 01/07/19 Time of Evaluation: 11:22 - Subjective Subjective: PGY-[address] Law Nephchristine Pt is NPO for renal u/s. Complaints of IVF with K burning, off IVF till 11am. Headache and general body ache improves Objective - Vital Signs/Intake and Output Vital Signs (last 24 hours): Temp Pulse Resp BP Pulse Ox 98.4 F 84 20 168/88 H 95 01/07/19 07:00 01/07/19 07:00 01/07/19 07:00 01/07/19 10:18 01/07/19 07:00 Intake and Output: 01/07/19 01/07/19 06:59 18:59 Intake Total 700 Balance 700 - Medications Medications: Current Medications Acetaminophen (Tylenol 325mg Tab) 650 mg PO Q6 PRN PRN Reason: Pain, moderate (4-7) Last Admin: 01/06/19 17:35 Dose: 650 mg Amlodipine Besylate (Norvasc) 10 mg PO DAILY [facility] Last Admin: 01/07/19 10:18 Dose: 10 mg Heparin Sodium (Porcine) (Heparin) 5,000 units SC Q8 [facility] Last Admin: 01/07/19 06:54 Dose: Not Given Hydralazine HCl (Apresoline) 10 mg IVP Q6H PRN PRN Reason: Systolic Blood Pressure Hydralazine HCl (Apresoline) 50 mg PO Q8H [facility] Last Admin: 01/07/19 06:48 Dose: 50 mg Sodium Chloride (Sodium Chloride 0.9%) 1,000 mls @ 75 mls/hr IV .[id number] [facility] Stop: 01/08/19 12:39 Last Admin: 01/07/19 10:23 Dose: 75 mls/hr Magnesium Oxide (Mag-Ox) 400 mg PO ONCE ONE Stop: 01/07/19 20:01 Metoprolol Tartrate (Lopressor) 25 mg PO BID [facility] Last Admin: 01/07/19 10:18 Dose: 25 mg - Labs Labs: 01/07/19 08:00 01/07/19 08:00 - Constitutional Appears: No Acute Distress - Head Exam Head Exam: ATRAUMATIC, NORMAL INSPECTION, NORMOCEPHALIC - Eye Exam Eye Exam: EOMI, Normal appearance, PERRL. absent: Scleral icterus Pupil Exam: NORMAL ACCOMODATION - ENT Exam ENT Exam: Mucous Membranes Moist - Neck Exam Additional comments: supple - Respiratory Exam Respiratory Exam: Clear to Ausculation Bilateral, NORMAL BREATHING PATTERN. absent: Rales, Rhonchi, Wheezes - Cardiovascular Exam Cardiovascular Exam: REGULAR RHYTHM. absent: +S1, +S2 - GI/Abdominal Exam GI & Abdominal Exam: Soft, Normal Bowel Sounds. absent: Tenderness Additional comments: No suprapubic tenderness - Back Exam Back Exam: absent: CVA tenderness (L), CVA tenderness (R) - Neurological Exam Neurological Exam: Alert, Awake, Oriented x3 - Psychiatric Exam Psychiatric exam: Normal Affect, Normal Mood - Skin Skin Exam: Dry, Warm Assessment and Plan - Assessment and Plan (Free Text) Plan: Ms Celis, 28F, with PMHx Conn's syndrome (Dx 1 year ago but have HTN/low K since 10 y/o), Hx alcohol syndrome with developmental delay, admitted for persistent high blood pressure. Not taking meds x 1 month due to stress from taking care of 1-year old baby. (1) Persistent HTN - improving Likely secondary With LVH and diastolic dysfunction Now on Metoprolol 25 BID, Norvasc 10, ADD hydralazine 50q8 today hydralazine PRN Aldosterone:renin: pending____ Cortisol, low at 2.1. Will repeat it at 8AM still low at 3. TSH normal/high Total T4, questionable sick euthyroid CXR: cardiomegaly Echo: EF 68, LVH From [facility], the result may be suggestive of SIADH. If hyponatermia persists outpatient, pt may need further imaging. (2) HypoK and alkalosis replete K PRN Continue to trend (3) Questionable Conn's syndrome Will call outpt nephro to get record NS @ 75 to salt load Will get 24 hour U(aldosterone) tomorrow CT A/P pending (4) Hypocortisolism May add cosyntropin stim test? (5) Generalized body ache in the setting of low K CK level, U/A neg. Continue to observe Re-question about amiloride vs spironolactone: [facility] ([phone]) confirmed that she filled her amiloride on 06/14/2017 for 1 month supply only. Then she was put on spironolacton since 09/17/2017. Last refill of spironolactone is on 10/09/2018 for 90- day supply. The most recent dose is 50mg BID. Her outpatient lapidarist, Dr Tubbs, medical record is in the chart. Thank you Serg, med student s/r/d/w Dr Law <Avinash Law - Last Filed: 01/08/19 01:25> Objective - Vital Signs/Intake and Output Vital Signs (last 24 hours): Temp Pulse Resp BP Pulse Ox 98.3 F 93 H 20 147/84 95 01/07/19 23:10 01/07/19 23:10 01/07/19 23:10 01/07/19 23:10 01/07/19 23:10 Intake and Output: 01/07/19 01/08/19 18:59 06:59 Intake Total 700 1974 Balance 700 1974 - Medications Medications: Current Medications Acetaminophen (Tylenol 325mg Tab) 650 mg PO Q6 PRN PRN Reason: Pain, moderate (4-7) Last Admin: 01/06/19 17:35 Dose: 650 mg Amlodipine Besylate (Norvasc) 10 mg PO DAILY [facility] Last Admin: 01/07/19 10:18 Dose: 10 mg Heparin Sodium (Porcine) (Heparin) 5,000 units SC Q8 [facility] Last Admin: 01/07/19 21:32 Dose: Not Given Hydralazine HCl (Apresoline) 10 mg IVP Q6H PRN PRN Reason: Systolic Blood Pressure Hydralazine HCl (Apresoline) 100 mg PO Q8 [facility] Last Admin: 01/07/19 21:31 Dose: 100 mg Sodium Chloride (Sodium Chloride 0.9%) 1,000 mls @ 75 mls/hr IV .[id number] [facility] Stop: 01/08/19 12:39 Last Admin: 01/07/19 10:23 Dose: 75 mls/hr Metoprolol Tartrate (Lopressor) 25 mg PO BID [facility] Last Admin: 01/07/19 17:50 Dose: 25 mg - Labs Labs: 01/07/19 08:00 01/07/19 08:00 Attending/Attestation - Attestation I have personally seen and examined this patient.: Yes I have fully participated in the care of the patient.: Yes I have reviewed all pertinent clinical information, including history, physical exam and plan: Yes Notes (Text): Patient seen and examined; I agree with the resident's note as above with following additions/edits: 28 yo F admitted with hypertensive urgency and profound hypokalemia; records from lapidarist reviewed; diagnosed with Conn's syndrome at some point but workup not available to us; presumably had increased kylah level but unclear if confirmatory testing done; interestingly, patient was on amiloride at one point and then switched to spironolactone (with the latter being the drug of choice for hyperaldo, not amiloride); CT abd/pelvis obtained to look for adrenal adenoma but was negative; at this point, we are repeating test for primary hyperaldosteronism; currently giving NS for salt loading with plan to start 24 hr urine collection for aldosterone tomorrow; BP still elevated this morning but responding well to increased dose of hydralazine (now 100 q8h), will continue same; Hypokalemia improved but still not corrected completely; patient refusing K containing IVF, will have to keep giving her PO KCl; -Continue current meds; -Workup for hyperaldo as above;
--- NOTE | 2019-01-07 12:05 | RAD ---
Date of service: 01/07/2019 HISTORY: rule out CHF COMPARISON: 01/05/2019 TECHNIQUE: Chest PA and lateral views FINDINGS: LUNGS: No active pulmonary disease. PLEURA: No significant pleural effusion identified. No pneumothorax apparent. CARDIOVASCULAR: No aortic atherosclerotic calcification present. Normal cardiac size. No pulmonary vascular congestion. OSSEOUS STRUCTURES: No significant abnormalities. VISUALIZED UPPER ABDOMEN: Normal. OTHER FINDINGS: None. IMPRESSION: No active disease.
--- NOTE | 2019-01-07 13:31 | PN ---
DATE: 01/07/2019 ROOM: 552B. SUBJECTIVE: This is a 28-year-old female presenting here with generalized body weakness and accelerated hypertension related to underlying known history of Conn's syndrome and is now being followed closely for metabolic management. She has had persistent hypokalemia and requires IV potassium supplementation to optimize her metabolic control thereof. Her latest chemistry showed a BUN of 16, sodium 142, potassium 3.1, chloride 104, CO2 24, glucose 101, creatinine 0.9. Her thyroxine level showed a T4 of 11.4 with a TSH of 1.77 and the serum cortisol of 2.1. A plasma aldosterone and plasma renin activity levels are still pending at this time. ASSESSMENT: This is a 28-year-old female with known history of Conn's syndrome with primary hyperaldosteronism. The exact etiology is not known at this time and it would be quite interesting to know if she indeed has an underlying adrenal adenoma, which actually if present and removed, would alleviate her uncontrolled hypertensive crisis and if especially the hypokalemia. PLAN OF MANAGEMENT: We would highly recommend radiologic procedures to be repeated if we do not have the results of the previous CAT scan of the abdomen and pelvis. A CT of the adrenals or MRI of the adrenals would be ideal to fully delineate the presence of an underlying adrenal adenoma. Many patients benefit from minimally invasive laparoscopic adrenalectomy if indeed we have an adrenal adenoma present with this patient. We will obtain serial chemistries accordingly. We will follow. Theodora Jorge MD
[2019-01-07] MEDS ORDERED: Iodixanol 320 MG/ML 100 ML BOTTLE IV ONE (14:02)
--- NOTE | 2019-01-07 15:55 | CT ---
Date of service: 01/07/2019 PROCEDURE: CT Abdomen and Pelvis with and without intravenous contrast HISTORY: Eval Adrenal, Hx Conn's COMPARISON: None available TECHNIQUE: Axial images of the abdomen were obtained in the pre contrast, portal venous and delayed phases of enhancement. Coronal and sagittal reformats were generated and reviewed. Contrast dose: 100 mL Visipaque 320 IV Radiation dose: Total exam DLP = 2482.8 mGy-cm. This CT exam was performed using one or more of the following dose reduction techniques: Automated exposure control, adjustment of the mA and/or kV according to patient size, and/or use of iterative reconstruction technique. FINDINGS: LOWER THORAX: No visible consolidation, pleural effusion, or pneumothorax. LIVER: Hepatomegaly. GALLBLADDER AND BILE DUCTS: Unremarkable. PANCREAS: Unremarkable. SPLEEN: Unremarkable. ADRENALS: Unremarkable. KIDNEYS AND URETERS: The kidneys enhance symmetrically. No hydronephrosis or obstructing calculus identified. VASCULATURE: No aortic aneurysm. No aortic atherosclerotic calcification or mural plaque present. BOWEL: Stomach is nondistended. Lack of oral contrast limits evaluation for bowel pathology. Bowel loops appear within normal limits of caliber without evidence of obstruction. APPENDIX: The appendix appears within normal limits of caliber. No secondary signs of acute appendicitis. PERITONEUM: No significant free fluid. No definite free air. LYMPH NODES: No bulky adenopathy identified. BLADDER: Thick-walled urinary bladder. REPRODUCTIVE: Uterus is present. BONES: No acute osseous abnormality is detected. OTHER FINDINGS: Small fat containing umbilical hernia. IMPRESSION: Hepatomegaly. Urinary bladder appears thick walled. Recommend correlation with urinalysis. Additional incidental findings as above.
[2019-01-07] MEDS ORDERED: Magnesium Oxide 400 mg Tab UD PO ONE (20:00)
[2019-01-07] MEDS ORDERED: Potassium Chloride 20 mEq ER Tab PO ONE (20:00)
--- NOTE | 2019-01-08 07:09 | CP.PCM.PN ---
<José Chavez - Last Filed: 01/08/19 16:54> Subjective - Date & Time of Evaluation Date of Evaluation: 01/08/19 Time of Evaluation: 07:09 - Subjective Subjective: Progress Note for Dr. Mejía Patient seen and examined at bedside. She states she has a headache. She was NPO and had renal study done this morning. She denies fevers, chills, lightheadedness, dizziness, chest pain, shortness of breath, abdominal pain, na usea, vomiting, diarrhea, constipation, dysuria, urinary frequency, leg pain or swelling. Family not present at bedside. Objective - Vital Signs/Intake and Output Vital Signs (last 24 hours): Temp Pulse Resp BP Pulse Ox 98.3 F 83 20 138/92 H 95 01/07/19 23:10 01/08/19 04:37 01/08/19 04:37 01/08/19 06:25 01/07/19 23:10 Intake and Output: 01/08/19 01/08/19 06:59 18:59 Intake Total 1975 Balance 1975 - Medications Medications: Current Medications Acetaminophen (Tylenol 325mg Tab) 650 mg PO Q6 PRN PRN Reason: Pain, moderate (4-7) Last Admin: 01/08/19 03:25 Dose: 650 mg Amlodipine Besylate (Norvasc) 10 mg PO DAILY [facility] Last Admin: 01/07/19 10:18 Dose: 10 mg Heparin Sodium (Porcine) (Heparin) 5,000 units SC Q8 [facility] Last Admin: 01/08/19 06:29 Dose: Not Given Hydralazine HCl (Apresoline) 10 mg IVP Q6H PRN PRN Reason: Systolic Blood Pressure Hydralazine HCl (Apresoline) 100 mg PO Q8 [facility] Last Admin: 01/08/19 06:28 Dose: 100 mg Sodium Chloride (Sodium Chloride 0.9%) 1,000 mls @ 75 mls/hr IV .[id number] [facility] Stop: 01/08/19 12:39 Last Admin: 01/07/19 10:23 Dose: 75 mls/hr Metoprolol Tartrate (Lopressor) 25 mg PO BID [facility] Last Admin: 01/07/19 17:50 Dose: 25 mg - Labs Labs: 01/07/19 08:00 01/07/19 08:00 - Constitutional Appears: Well, Non-toxic, No Acute Distress - Head Exam Head Exam: ATRAUMATIC, NORMOCEPHALIC - Eye Exam Eye Exam: EOMI, PERRL - ENT Exam ENT Exam: Mucous Membranes Dry - Neck Exam Neck Exam: Full ROM. absent: Tenderness - Respiratory Exam Respiratory Exam: Decreased Breath Sounds (secondary to body habitus). absent: Rales, Rhonchi, Wheezes, Respiratory Distress, Stridor - Cardiovascular Exam Cardiovascular Exam: REGULAR RHYTHM, +S1, +S2. absent: Gallop, Rubs, Murmur - GI/Abdominal Exam GI & Abdominal Exam: Soft, Normal Bowel Sounds. absent: Distended, Firm, Guarding, Rigid, Tenderness - Extremities Exam Extremities Exam: Normal Capillary Refill. 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 Plan: Elevated blood pressure, chronic Hypokalemia Possible history of Conn's syndrome Replete potassium as needed Kcl 80mEq PO solution given today for K of 2.6 Continue to monitor K levels Norvasc 10mg PO daily Hydralazine 10mg IVP Q6 PRN Hydralazine 100mg Q8 Metoprolol 25mg PO BID Manager Technical Training Dr. Law consulted, help appreciated Recommended holding Aldactone until confirmatory testing for hyperaldost eronism present Follow up 24 hour urine aldosterone level, 24 hour urine creatinine clearance Renal artery duplex: normal velocities in right renal artery, slightly increased velocities in left renal artery. bilateral renal veins appear patent. Prior records show patient was last on Spirinolactone 50mg PO BID, Labetalol 300mg PO TID, Procardia 30mg XL CT abd/pelvis hepatomegaly. Urinary bladder appears thick walled. Adrenal unremarkable. Airfield Manager Dr. Jorge consulted, help appreciated Cortisol AM low 2.1, 3.6 Follow up cosyntropin stim test tomorrow Cardiomegaly, chronic EKG SR 66 T wave inversions CXR: cardiomegaly, left basilar atelectasis. ECHO: LVEF: > 55%, LVH with diastolic dysfunction TSH 1.77, T4 11.4 high Headache, possibly secondary to Conn's syndrome Tylenol PRN CT head: no acute intracranial pathology, mucosal thickening of left greater than right ethmoid air cells. 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 Kym Chavez, PGY1 <Ayden Mejía H - Last Filed: 01/08/19 18:06> Objective - Vital Signs/Intake and Output Vital Signs (last 24 hours): Temp Pulse Resp BP Pulse Ox 98.1 F 82 20 135/79 95 01/08/19 16:00 01/08/19 16:00 01/08/19 16:00 01/08/19 17:53 01/08/19 16:00 Intake and Output: 01/08/19 01/08/19 06:59 18:59 Intake Total 1974 600 Output Total 700 Balance 1975 -100 - Medications Medications: Current Medications Acetaminophen (Tylenol 325mg Tab) 650 mg PO Q6 PRN PRN Reason: Pain, moderate (4-7) Last Admin: 01/08/19 03:25 Dose: 650 mg Amlodipine Besylate (Norvasc) 10 mg PO DAILY [facility] Last Admin: 01/08/19 09:59 Dose: 10 mg Cosyntropin (Cortrosyn) 0.25 mg IM ONCE ONE Stop: 01/09/19 07:01 Enoxaparin Sodium (Lovenox) 40 mg SC DAILY [facility] Hydralazine HCl (Apresoline) 10 mg IVP Q6H PRN PRN Reason: Systolic Blood Pressure Hydralazine HCl (Apresoline) 100 mg PO Q8 [facility] Last Admin: 01/08/19 14:49 Dose: Not Given Metoprolol Tartrate (Lopressor) 25 mg PO BID [facility] Last Admin: 01/08/19 17:53 Dose: 25 mg Potassium Chloride (Potassium Chloride Oral Soln) 40 meq PO ONCE ONE Stop: 01/08/19 22:01 - Labs Labs: 01/08/19 07:05 01/08/19 17:05 Attending/Attestation - Attestation I have personally seen and examined this patient.: Yes I have fully participated in the care of the patient.: Yes I have reviewed all pertinent clinical information, including history, physical exam and plan: Yes Notes (Text): 01/08/19 18:03 Medical attending: Patient was seen and examined by me. Agree with the above note by the resident The patient was not in any cute distress this morning when we came and saw her. At this time her recorded systolic BPs are much better than when she came in. Her K remains low, however improving. There was a CT with IV contrast done, however it did not report on adrenal abnormalities Possible MRI could be done - however I should point out that considering the patient's cognitive ability I do not know if she would tolerate/allow this Otherwise she appears stable at this time. We are pending lab work ordered with irene to aldosterone Ayden Mejía
[2019-01-08 07:16] LABS: BASO # 0.1 K/uL (0.0-0.2); BASO % 1.1 % (0.0-2.0); EOS # 0.3 K/uL (0.0-0.7); HEMOGLOBIN 12.1 g/dL (11.0-16.0); LYMPH # 2.7 K/uL (1.0-4.3); LYMPH % 35.6 % (20.0-40.0); MEAN CELL VOLUME 80.4 fL (81.0-99.0); MEAN CORPUSCULAR HEMOGLOBIN 26.6 pg (27.0-31.0); MEAN PLATELET VOLUME 8.2 fL (7.2-11.7); MONO # 0.4 K/uL (0.0-0.8); MONO % 4.7 % (0.0-10.0); NEUT # 4.2 K/uL (1.8-7.0); NEUT % 54.6 % (50.0-75.0); RBC 4.54 Mil/uL (3.80-5.20); RED CELL DISTRIBUTION WIDTH 15.3 % (11.5-14.5); WHITE BLOOD COUNT 7.6 K/uL (4.8-10.8)
[2019-01-08 07:36] LABS: ALB/GLOB RATIO 1.1 (1.0-2.1); ALBUMIN 4.1 g/dL (3.5-5.0); ALT/SGPT 16 U/L (9-52); AST/SGOT 17 U/L (14-36); BLOOD UREA NITROGEN 14 mg/dL (7-17); CALCIUM 8.8 mg/dl (8.6-10.4); GFR NON-AFRICAN AMERICAN > 60
[2019-01-08] MEDS: Potassium Chloride 20 mEq/15 ml LIQ UD PO SCH ×2 (10:00→12:03)
--- NOTE | 2019-01-08 11:02 | CP.PCM.PN ---
Subjective - Date & Time of Evaluation Date of Evaluation: 01/08/19 Time of Evaluation: 10:59 - Subjective Subjective: PGY-[address] Law, Nephro Pt states that she has a headache today, sensitive to light, at frontal area, got tylenol early AM and motrin at PM. no vision or hearing changes. tolerated salt loading with PRN BP med Objective - Vital Signs/Intake and Output Vital Signs (last 24 hours): Temp Pulse Resp BP Pulse Ox 98.1 F 100 H 20 138/89 98 01/08/19 07:58 01/08/19 07:58 01/08/19 07:58 01/08/19 09:59 01/08/19 07:58 Intake and Output: 01/08/19 01/08/19 06:59 18:59 Intake Total 1975 Balance 1974 - Medications Medications: Current Medications Acetaminophen (Tylenol 325mg Tab) 650 mg PO Q6 PRN PRN Reason: Pain, moderate (4-7) Last Admin: 01/08/19 03:25 Dose: 650 mg Amlodipine Besylate (Norvasc) 10 mg PO DAILY [facility] Last Admin: 01/08/19 09:59 Dose: 10 mg Heparin Sodium (Porcine) (Heparin) 5,000 units SC Q8 [facility] Last Admin: 01/08/19 06:29 Dose: Not Given Hydralazine HCl (Apresoline) 10 mg IVP Q6H PRN PRN Reason: Systolic Blood Pressure Hydralazine HCl (Apresoline) 100 mg PO Q8 [facility] Last Admin: 01/08/19 06:28 Dose: 100 mg Sodium Chloride (Sodium Chloride 0.9%) 1,000 mls @ 75 mls/hr IV .[id number] [facility] Stop: 01/08/19 12:39 Last Admin: 01/07/19 10:23 Dose: 75 mls/hr Metoprolol Tartrate (Lopressor) 25 mg PO BID [facility] Last Admin: 01/08/19 09:59 Dose: 25 mg Potassium Chloride (Potassium Chloride Oral Soln) 40 meq PO Q2H [facility] Stop: 01/08/19 11:28 Last Admin: 01/08/19 10:00 Dose: 40 meq - Labs Labs: 01/08/19 07:05 01/08/19 07:05 - Constitutional Appears: No Acute Distress - Head Exam Head Exam: ATRAUMATIC, NORMAL INSPECTION, NORMOCEPHALIC - Eye Exam Eye Exam: EOMI, Normal appearance, PERRL. absent: Scleral icterus Pupil Exam: NORMAL ACCOMODATION - ENT Exam ENT Exam: Mucous Membranes Moist - Neck Exam Additional comments: supple - Respiratory Exam Respiratory Exam: Clear to Ausculation Bilateral, NORMAL BREATHING PATTERN. absent: Rales, Rhonchi, Wheezes - Cardiovascular Exam Cardiovascular Exam: REGULAR RHYTHM, +S1, +S2. absent: Murmur - GI/Abdominal Exam GI & Abdominal Exam: Soft, Normal Bowel Sounds. absent: Tenderness - Extremities Exam Extremities Exam: Pedal Edema. 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 Not taking meds x 1 month due to stress from taking care of 1-year old baby. (1) Persistent HTN - improving Likely secondary With LVH and diastolic dysfunction Now on Metoprolol 25 BID, Norvasc 10, Increase hydralazine 100q8 today hydralazine PRN Aldosterone:renin: pending____ Cortisol, low at 2.1. Will repeat it at 8AM still low at 3. TSH normal/high Total T4, questionable sick euthyroid CXR: cardiomegaly Echo: EF 68, LVH (2) HypoK and alkalosis replete K PRN Continue to trend Pt only take the K solution. refuse K-dur or any suppl in pill form (3) Questionable Conn's syndrome NS @ 75 to salt load - Dont stop started 24 hour U(aldosterone) & U(creatinine) today. Still pending first u/o, which will omi the start time of [address] A/P: neg adrenal adenoma (4) Hypocortisolism vs Cosyntropin stim test tomorrow. CT head: per Dr Moreno, pituitary not visible well, ? cyst like. MRI pituitary as needed (5) Generalized body ache in the setting of low K CK level, U/A neg. Continue to observe s/r/d/w Dr Law
--- NOTE | 2019-01-08 12:59 | VASCLAB ---
Date of service: 01/08/2019 PROCEDURE: RENAL ARTERY DUPLEX SCAN HISTORY: Uncontrolled HTN, r/o renal artery stenosis. COMPARISON: None available. TECHNIQUE: Real-time ultrasonography evaluation of the renal arteries were performed. Comparison is made to the aorta. Report prepared by SUSAN Caballero FINDINGS: AORTA: Patent. Peak systolic velocity 111 centimeters/second RIGHT RENAL ARTERY: Renal artery to aorta ratio: 1.4 * Proximal segment: Patent. Peak systolic velocity 143 centimeters/second * Mid segment: Patent. Peak systolic velocity 152 centimeters/second * Distal segment: Patent. Peak systolic velocity 111 centimeters/second Other findings: Right Kidney measures approximately 11.72 centimeters. LEFT RENAL ARTERY: Renal artery to aorta ratio: 1.9 * Proximal segment: Patent. Peak systolic velocity 154 centimeters/second * Mid segment: Patent. Peak systolic velocity 203 centimeters/second * Distal segment: Patent. Peak systolic velocity 209 centimeters/second Other findings: Left Kidney measures approximately 13.12 centimeters. IMPRESSION: Normal velocities noted within the RIGHT renal artery. Slightly increased velocities noted within the LEFT renal artery. Bilateral renal veins appeared patent by color fill and waveform analysis. Technically difficult exam due to patient body habitus.
[2019-01-08] MEDS ORDERED: Potassium Chloride 20 mEq/15 ml LIQ UD PO SCH (14:00)
[2019-01-08] MEDS ORDERED: Potassium Chloride 20 mEq/15 ml LIQ UD PO ONE ×3 (15:39→22:00)
[2019-01-08 17:20] LABS: BLOOD UREA NITROGEN 10 mg/dL (7-17); CALCIUM 9.2 mg/dl (8.6-10.4); GFR NON-AFRICAN AMERICAN > 60
--- NOTE | 2019-01-08 19:42 | PN ---
DATE: 01/08/2019 ENDOCRINOLOGY FOLLOWUP NOTE LOCATION: Room 552. SUBJECTIVE: This is a 28-year-old female with known history of Conn's syndrome and presenting here with accelerated hypertension and is now being followed closely for metabolic management. She also has persistent hypokalemia requiring potassium supplementation as noted. LABORATORY DATA: Her latest chemistry showed a BUN of 14, sodium 139, potassium 2.6, chloride 103, CO2 of 27, glucose 95, and creatinine 0.8. Her glucose levels have ranged from 99 to 124 mg/dL. CAT scan of the abdomen and pelvis showed unremarkable adrenals with no mention of any mass, lesion, or the presence of any underlying tumor thereof. There is an incidental finding of hepatomegaly as noted. ASSESSMENT: This is a 28-year-old female presenting here with accelerated hypertension and persistent hypokalemia with established diagnosis of Conn's syndrome and is now being followed closely for metabolic management. The CAT scan of the abdomen and pelvis did not show the presence of any adrenal hyperplasia or the presence of an adrenal adenoma at this time. PLAN OF MANAGEMENT: We will continue the current medical management with potassium supplementation and tighter blood pressure control at this time. From the endocrine viewpoint, we cannot really recommend further surgical intervention if there is no adrenal adenoma confirmed by the CAT scan of the abdomen and pelvis as noted. Although, it is quite rare, but there is also the possibility of an ectopic ACTH syndrome, causing persistent hypokalemia thereof. We will await the results of the ACTH level as ordered otherwise and also repeat the cortisol levels low normal on admission. Concur with the present medical management otherwise. Theodora Jorge MD
[2019-01-09 05:25] LABS: BASO # 0.2 K/uL (0.0-0.2); BASO % 1.8 % (0.0-2.0); EOS # 0.3 K/uL (0.0-0.7); EOS % 3.4 % (0.0-4.0); LYMPH # 3.3 K/uL (1.0-4.3); LYMPH % 33.1 % (20.0-40.0); MEAN CELL VOLUME 80.4 fL (81.0-99.0); MEAN CORPUSCULAR HEMOGLOBIN 26.2 pg (27.0-31.0); MEAN CORPUSCULAR HGB CONC 32.5 g/dL (33.0-37.0); MONO # 0.5 K/uL (0.0-0.8); MONO % 4.9 % (0.0-10.0); NEUT # 5.6 K/uL (1.8-7.0); NEUT % 56.8 % (50.0-75.0); RBC 4.59 Mil/uL (3.80-5.20); RED CELL DISTRIBUTION WIDTH 15.4 % (11.5-14.5); WHITE BLOOD COUNT 9.8 K/uL (4.8-10.8)
[2019-01-09 05:55] LABS: ALT/SGPT 21 U/L (9-52); AST/SGOT 23 U/L (14-36); BLOOD UREA NITROGEN 20 mg/dL (7-17); CALCIUM 8.9 mg/dl (8.6-10.4); GFR NON-AFRICAN AMERICAN > 60
--- NOTE | 2019-01-09 06:58 | CP.PCM.PN ---
<José Chavez - Last Filed: 01/09/19 16:54> Subjective - Date & Time of Evaluation Date of Evaluation: 01/09/19 Time of Evaluation: 06:58 - Subjective Subjective: Progress Note for Dr. Mejía's service Patient seen and examined at bedside. She states she no longer has diffuse body aches, and is comfortable currently. She denies fevers, chills, headache, lightheadedness, nausea, vomiting, diarrhea, constipation, abdominal pain, chest pain, back pain, dysuria, urinary frequency, leg pain or swelling. Objective - Vital Signs/Intake and Output Vital Signs (last 24 hours): Temp Pulse Resp BP Pulse Ox 98.3 F 93 H 20 104/69 97 01/08/19 23:10 01/09/19 02:45 01/08/19 23:10 01/08/19 23:10 01/08/19 23:10 Intake and Output: 01/08/19 01/09/19 18:59 06:59 Intake Total 600 Output Total 700 Balance -100 - Medications Medications: Current Medications Acetaminophen (Tylenol 325mg Tab) 650 mg PO Q6 PRN PRN Reason: Pain, moderate (4-7) Last Admin: 01/08/19 03:25 Dose: 650 mg Amlodipine Besylate (Norvasc) 10 mg PO DAILY [facility] Last Admin: 01/08/19 09:59 Dose: 10 mg Cosyntropin (Cortrosyn) 0.25 mg IM ONCE ONE Stop: 01/09/19 07:01 Last Admin: 01/09/19 06:49 Dose: 0.25 mg Enoxaparin Sodium (Lovenox) 40 mg SC DAILY [facility] Hydralazine HCl (Apresoline) 10 mg IVP Q6H PRN PRN Reason: Systolic Blood Pressure Hydralazine HCl (Apresoline) 100 mg PO Q8 [facility] Last Admin: 01/08/19 21:43 Dose: 100 mg Metoprolol Tartrate (Lopressor) 25 mg PO BID [facility] Last Admin: 01/08/19 17:53 Dose: 25 mg - Labs Labs: 01/09/19 05:17 01/09/19 05:17 - Constitutional Appears: Well, Non-toxic, No Acute Distress - Head Exam Head Exam: ATRAUMATIC, NORMOCEPHALIC - Eye Exam Eye Exam: EOMI, PERRL - ENT Exam ENT Exam: Mucous Membranes Dry - Neck Exam Neck Exam: Full ROM. absent: Tenderness - Respiratory Exam Respiratory Exam: Decreased Breath Sounds. absent: Rales, Rhonchi, Wheezes, Respiratory Distress, Stridor - Cardiovascular Exam Cardiovascular Exam: REGULAR RHYTHM, +S1, +S2. absent: Gallop, Rubs, Murmur - GI/Abdominal Exam GI & Abdominal Exam: Soft, Normal Bowel Sounds. absent: Distended, Firm, Guarding, Rigid, Tenderness - Extremities Exam Extremities Exam: Pedal Edema (Trace pedal edema ). absent: Calf Tenderness - Back Exam Back Exam: absent: CVA tenderness (L), CVA tenderness (R) - Neurological Exam Neurological Exam: Alert, Awake, Oriented x3 - Skin Skin Exam: Dry, Intact, Warm Assessment and Plan - Assessment and Plan (Free Text) Assessment: 28 year old female with history of Conn's disease and obstructive sleep apnea, who presents for hypertension and hypokalemia. Plan: Elevated blood pressure, chronic Hypokalemia Possible history of Conn's syndrome Replete potassium as needed Kcl 40mEq PO solution given today for K of 3.5 Continue to monitor K levels Norvasc 10mg PO daily Hydralazine 10mg IVP Q6 PRN Hydralazine 100mg PO Q8 Metoprolol 25mg PO BID [facility] Mod[employer] Assistant Dr. Law consulted, help appreciated Recommended holding Aldactone until confirmatory testing for hyperaldosteronism present 24 hour urine aldosterone level, 24 hour urine creatinine clearance in progress Renal artery duplex: normal velocities in right renal artery, slightly increased velocities in left renal artery. bilateral renal veins appear patent. Prior records show patient was last on Spirinolactone 50mg PO BID, Labetalol 300mg PO TID, Procardia 30mg XL CT abd/pelvis hepatomegaly. Urinary bladder appears thick walled. Adrenal unremarkable. Financial Wellness Coach Dr. Jorge consulted, help appreciated Cortisol AM low 2.1, 3.6 Cosyntropin stim test Pre-cortisol level 7.0, post cortisol 20.5 Follow up post ACTH level. Cardiomegaly, chronic EKG SR 66 T wave inversions CXR: cardiomegaly, left basilar atelectasis. ECHO: LVEF: > 55%, LVH with diastolic dysfunction TSH 1.77, T4 11.4 high Headache, possibly secondary to Conn's syndrome Tylenol 650mg Q6 PRN CT head: no acute intracranial pathology, mucosal thickening of left greater than right ethmoid air cells. 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 Kym Chavez, PGY1 <Ayden Mejía H - Last Filed: 01/10/19 07:35> Objective - Vital Signs/Intake and Output Vital Signs (last 24 hours): Temp Pulse Resp BP Pulse Ox 98.6 F 99 H 20 142/84 97 01/09/19 23:10 01/10/19 05:48 01/10/19 05:48 01/10/19 05:48 01/09/19 23:10 - Medications Medications: Current Medications Acetaminophen (Tylenol 325mg Tab) 650 mg PO Q6 PRN PRN Reason: Pain, moderate (4-7) Last Admin: 01/08/19 03:25 Dose: 650 mg Amlodipine Besylate (Norvasc) 10 mg PO DAILY [facility] Last Admin: 01/09/19 10:05 Dose: 10 mg Enoxaparin Sodium (Lovenox) 40 mg SC DAILY [facility] Last Admin: 01/09/19 10:05 Dose: Not Given Hydralazine HCl (Apresoline) 10 mg IVP Q6H PRN PRN Reason: Systolic Blood Pressure Hydralazine HCl (Apresoline) 50 mg PO Q8 [facility] Last Admin: 01/10/19 05:58 Dose: 50 mg Metoprolol Tartrate (Lopressor) 25 mg PO BID [facility] Last Admin: 01/09/19 17:15 Dose: 25 mg Potassium Chloride (K-Dur 20 Meq Er Tab) 40 meq PO DAILY [facility] Spironolactone (Aldactone) 25 mg PO BID [facility] Last Admin: 01/09/19 17:14 Dose: 25 mg - Labs Labs: 01/10/19 07:09 01/09/19 15:28 Attending/Attestation - Attestation I have personally seen and examined this patient.: Yes I have fully participated in the care of the patient.: Yes I have reviewed all pertinent clinical information, including history, physical exam and plan: Yes Notes (Text): 01/10/19 07:33 Medical attending : Patient was seen and examined by me, agree with the above note by the resident The patient was not in any acute distress when we saw her. In the mean time we are watching her blood pressure and K levels. She has required quite a lot of supplemental K and she does not like K given IV so the residents have been giving via PO. In the mean time we are also waiting on her send out labs as well Ayden Mejía
[2019-01-09] MEDS: Enoxaparin 40 mg Syringe SC SCH (10:05)
[2019-01-09] MEDS ORDERED: Potassium Chloride 20 mEq/15 ml LIQ UD PO ONE (11:15)
--- NOTE | 2019-01-09 11:23 | CP.PCM.PN ---
Subjective - Date & Time of Evaluation Date of Evaluation: 01/09/19 Time of Evaluation: 11:21 - Subjective Subjective: PGY-[address] Law Pt is standing by bedside. Headache resolved. in good mood. No acute complaints Objective - Vital Signs/Intake and Output Vital Signs (last 24 hours): Temp Pulse Resp BP Pulse Ox 98.6 F 91 H 20 153/112 H 98 01/09/19 07:00 01/09/19 07:48 01/09/19 07:00 01/09/19 10:04 01/09/19 07:00 - Medications Medications: Current Medications Acetaminophen (Tylenol 325mg Tab) 650 mg PO Q6 PRN PRN Reason: Pain, moderate (4-7) Last Admin: 01/08/19 03:25 Dose: 650 mg Amlodipine Besylate (Norvasc) 10 mg PO DAILY [facility] Last Admin: 01/09/19 10:05 Dose: 10 mg Enoxaparin Sodium (Lovenox) 40 mg SC DAILY [facility] Last Admin: 01/09/19 10:05 Dose: Not Given Hydralazine HCl (Apresoline) 10 mg IVP Q6H PRN PRN Reason: Systolic Blood Pressure Hydralazine HCl (Apresoline) 100 mg PO Q8 [facility] Last Admin: 01/09/19 06:59 Dose: 100 mg Metoprolol Tartrate (Lopressor) 25 mg PO BID [facility] Last Admin: 01/09/19 10:04 Dose: 25 mg Potassium Chloride (K-Dur 20 Meq Er Tab) 40 meq PO DAILY [facility] - Labs Labs: 01/09/19 05:17 01/09/19 05:17 - Constitutional Appears: No Acute Distress - Head Exam Head Exam: ATRAUMATIC, NORMAL INSPECTION, NORMOCEPHALIC - Eye Exam Eye Exam: EOMI, Normal appearance, PERRL. absent: Scleral icterus Pupil Exam: NORMAL ACCOMODATION - ENT Exam ENT Exam: Mucous Membranes Moist - Neck Exam Additional comments: supple - Respiratory Exam Respiratory Exam: Clear to Ausculation Bilateral. absent: Rales, Rhonchi, Wh eezes - Cardiovascular Exam Cardiovascular Exam: REGULAR RHYTHM, +S1, +S2. absent: Murmur - GI/Abdominal Exam GI & Abdominal Exam: Soft, Normal Bowel Sounds. absent: Tenderness - Extremities Exam Extremities Exam: Pedal Edema. absent: Calf Tenderness - Back Exam Back Exam: absent: CVA tenderness (L), CVA tenderness (R) - Neurological Exam Neurological Exam: Alert, Awake, Oriented x3 - Psychiatric Exam Psychiatric exam: Normal Affect, Normal Mood - Skin Skin Exam: Dry, Warm Assessment and Plan - Assessment and Plan (Free Text) Plan: Ms Celis, 28F, with PMHx Conn's syndrome (Dx 1 year ago but have HTN/low K since 10 y/o), Hx alcohol syndrome with developmental delay, admitted for admitted with hypertensive urgency and profound hypokalemia. Not taking meds x 1 month due to stress from taking care of 1-year old baby. (1) Persistent HTN - improving Likely secondary With LVH and diastolic dysfunction Now on Metoprolol 25 BID, Norvasc 10, Increase hydralazine 100q8. After urine collection, will add back aldactone and see if we can decrease hydralazine. hydralazine PRN Aldosterone:renin: pending____ Cortisol, low at 2.1. Will repeat it at 8AM still low at 3. TSH normal/high Total T4, questionable sick euthyroid CXR: cardiomegaly Echo: EF 68, LVH Follow up with Dr Law outpatient (2) HypoK and alkalosis Start K-dur 40 daily replete K PRN. Pt only take the K solution. refuse pill form if not with other meds Continue to trend (3) Questionable Conn's syndrome after NS@75 x 1L, on-going 24-hr U(aldosterone) & U(creatinine). After 24-hr urine collection, will stop IVF, put her back on aldactone, decrease hydralazine dose Pending aldosterone level CT A/P: neg adrenal adenoma (4) Hypocortisolism. 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 cyst like. MRI pituitary as needed Follow up with Dr Jorge outpatient (5) Generalized body ache Likely from low K - resolved CK level, U/A neg. s/r/d w Dr Law
[2019-01-09] MEDS ORDERED: Potassium Chloride 20 mEq ER Tab PO SCH (11:30)
--- NOTE | 2019-01-09 20:18 | PN ---
DATE: 01/09/2019 ENDOCRINOLOGY FOLLOWUP NOTE LOCATION: Room 552. SUBJECTIVE: This is a 28-year-old female with known history of Conn's syndrome, presenting here with persistent hypokalemia with associated accelerated hypertension and is now being followed closely for metabolic management. Her basal cortisol level done had been on the low side of normal ranging from 2.1 to 3.6 mg/dL. LABORATORY DATA: Her latest chemistries showed a BUN of 20, sodium 139, potassium 3.5, chloride 106, CO2 of 20, glucose of 106 and creatinine 1. Her glucose levels are fluctuating but improved but have ranged from 103 to 123 mg/dL. A Cortrosyn stimulation test was undertaken today as noted and given. Her fasting cortisol was reported as 7 mcg/dL with a post-stimulation cortisol level of 20.5 which clearly excludes the possibility of underlying adrenal insufficiency or central hypoadrenalism. ASSESSMENT: This is a 28-year-old female with Conn's syndrome with primary hyperaldosteronism and persistent hypokalemia with elevated hypertension and is now being followed closely for metabolic management. PLAN OF MANAGEMENT: We will concur with the present medical management as given and continued potassium supplementations also given. Her CAT scan of the abdomen and pelvis also did not reveal any adrenal adenoma or bilateral adrenal hyperplasia as noted thereof. Moreover, her Cortrosyn stimulation test has been reported as normal and excludes the possibility of underlying adrenal insufficiency thereof. We will obtain a plan of management. We will obtain serial chemistries and supplement accordingly as needed. We will also consider an MRI of the adrenals if persistent hypokalemia levels are noted. We will await the results of adrenocorticotropic hormone levels, which if elevated will give us the diagnostic possibility of a very rare ACTH . We will follow with you. Theodora Jorge MD
--- NOTE | 2019-01-10 06:52 | CP.PCM.PN ---
Subjective - Date & Time of Evaluation Date of Evaluation: 01/10/19 Time of Evaluation: 06:51 - Subjective Subjective: Progress Note for Dr. Mejía's service Patient seen and examined at bedside. She has no complaints currently. She denies headache, lightheadedness, fevers, chills, chest pain, shortness of breath, palpitations, abdominal pain, nausea, vomiting, diarrhea, constipation, leg pain, leg swelling. Objective - Vital Signs/Intake and Output Vital Signs (last 24 hours): Temp Pulse Resp BP Pulse Ox 98.6 F 99 H 20 142/84 97 01/09/19 23:10 01/10/19 05:48 01/10/19 05:48 01/10/19 05:48 01/09/19 23:10 - Medications Medications: Current Medications Acetaminophen (Tylenol 325mg Tab) 650 mg PO Q6 PRN PRN Reason: Pain, moderate (4-7) Last Admin: 01/08/19 03:25 Dose: 650 mg Amlodipine Besylate (Norvasc) 10 mg PO DAILY [facility] Last Admin: 01/09/19 10:05 Dose: 10 mg Enoxaparin Sodium (Lovenox) 40 mg SC DAILY [facility] Last Admin: 01/09/19 10:05 Dose: Not Given Hydralazine HCl (Apresoline) 10 mg IVP Q6H PRN PRN Reason: Systolic Blood Pressure Hydralazine HCl (Apresoline) 50 mg PO Q8 [facility] Last Admin: 01/10/19 05:58 Dose: 50 mg Metoprolol Tartrate (Lopressor) 25 mg PO BID [facility] Last Admin: 01/09/19 17:15 Dose: 25 mg Potassium Chloride (K-Dur 20 Meq Er Tab) 40 meq PO DAILY [facility] Spironolactone (Aldactone) 25 mg PO BID [facility] Last Admin: 01/09/19 17:14 Dose: 25 mg - Labs Labs: 01/09/19 05:17 01/09/19 15:28 - Constitutional Appears: Well, Non-toxic, No Acute Distress - Head Exam Head Exam: ATRAUMATIC, NORMOCEPHALIC - Eye Exam Eye Exam: EOMI, PERRL - ENT Exam ENT Exam: Mucous Membranes Moist - Neck Exam Neck Exam: Full ROM. absent: Tenderness - Respiratory Exam Respiratory Exam: Clear to Ausculation Bilateral, NORMAL BREATHING PATTERN. absent: Rales, Rhonchi, Wheezes, Respiratory Distress, Stridor - Cardiovascular Exam Cardiovascular Exam: REGULAR RHYTHM, +S1, +S2. absent: Gallop, Rubs, Murmur - GI/Abdominal Exam GI & Abdominal Exam: Soft, Normal Bowel Sounds. absent: Firm, Guarding, Rigid, Tenderness - Extremities Exam Extremities Exam: Pedal Edema. absent: Calf Tenderness - Back Exam Back Exam: absent: CVA tenderness (L), CVA tenderness (R) - Neurological Exam Neurological Exam: Alert, Awake, Oriented x3 - Psychiatric Exam Psychiatric exam: Normal Affect, Normal Mood - Skin Skin Exam: Dry, Intact, Warm Assessment and Plan - Assessment and Plan (Free Text) Assessment: 28 year old female with history of Conn's and obstructive sleep apnea, who presents for hypertension and hypokalemia. Plan: Elevated blood pressure, chronic Hypokalemia Possible history of Conn's syndrome Replete potassium as needed KCl 40mEq PO x2 given for K 2.9 Continue to monitor K levels Norvasc 10mg PO daily Hydralazine 10mg IVP Q6 PRN Hydralazine 50mg PO Q8 Metoprolol 25mg PO BID Aldactone 50mg PO BID It Help Desk Technician Dr. Law consulted, help appreciated Aldosterone/renin ratio 95.5 Renin 0.19, 0.22 Aldosterone 21 24 hour urine aldosterone level follow up 24 hour urine creatinine clearance 134.0 Renal artery duplex: normal velocities in right renal artery, slightly increased velocities in left renal artery. bilateral renal veins appear patent. Prior records show patient was last on Spironolactone 50mg PO BID, Labetalol 300mg PO TID, Procardia 30mg XL CT abd/pelvis hepatomegaly. Urinary bladder appears thick walled. Adrenal unremarkable. Cut Out Worker Dr. Jorge consulted, help appreciated Cortisol AM low 2.1, 3.6 Cosyntropin stim test Pre-cortisol level 7.0, post cortisol 20.5 - adrenal insufficiency not likely Cardiomegaly, chronic EKG SR 66 T wave inversions CXR: cardiomegaly, left basilar atelectasis. ECHO: LVEF: > 55%, LVH with diastolic dysfunction TSH 1.77, T4 11.4 high Headache, possibly secondary to Conn's syndrome Tylenol 650mg Q6 PRN CT head: no acute intracranial pathology, mucosal thickening of left greater than right ethmoid air cells. 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 Kym Chavez, PGY1
[2019-01-10 07:26] LABS: BASO # 0.1 K/uL (0.0-0.2); BASO % 1.1 % (0.0-2.0); EOS # 0.2 K/uL (0.0-0.7); EOS % 2.8 % (0.0-4.0); HEMOGLOBIN 11.5 g/dL (11.0-16.0); LYMPH # 2.5 K/uL (1.0-4.3); LYMPH % 30.1 % (20.0-40.0); MEAN CELL VOLUME 78.8 fL (81.0-99.0); MEAN CORPUSCULAR HEMOGLOBIN 26.6 pg (27.0-31.0); MEAN CORPUSCULAR HGB CONC 33.7 g/dL (33.0-37.0); MEAN PLATELET VOLUME 8.4 fL (7.2-11.7); MONO # 0.4 K/uL (0.0-0.8); MONO % 4.7 % (0.0-10.0); NEUT % 61.3 % (50.0-75.0); NRBC % 0.1 % (0.0-2.0); RBC 4.32 Mil/uL (3.80-5.20); RED CELL DISTRIBUTION WIDTH 15.7 % (11.5-14.5); WHITE BLOOD COUNT 8.2 K/uL (4.8-10.8)
[2019-01-10 07:35] LABS: ALB/GLOB RATIO 1.1 (1.0-2.1); ALBUMIN 3.8 g/dL (3.5-5.0); ALT/SGPT 19 U/L (9-52); AST/SGOT 19 U/L (14-36); BLOOD UREA NITROGEN 14 mg/dL (7-17); CALCIUM 9.1 mg/dl (8.6-10.4); GFR NON-AFRICAN AMERICAN > 60
[2019-01-10] MEDS ORDERED: Potassium Chloride 20 mEq/15 ml LIQ UD PO ONE (07:47)
[2019-01-10] MEDS: Enoxaparin 40 mg Syringe SC SCH (09:29)
--- NOTE | 2019-01-10 11:18 | CP.PCM.PN ---
Subjective - Date & Time of Evaluation Date of Evaluation: 01/10/19 Time of Evaluation: 11:16 - Subjective Subjective: PGY-3 for Jana Hayes No acute complaint per 12 point ROS Objective - Vital Signs/Intake and Output Vital Signs (last 24 hours): Temp Pulse Resp BP Pulse Ox 97.4 F L 106 H 20 156/106 H 96 01/10/19 07:00 01/10/19 07:40 01/10/19 07:00 01/10/19 09:29 01/10/19 07:00 - Medications Medications: Current Medications Acetaminophen (Tylenol 325mg Tab) 650 mg PO Q6 PRN PRN Reason: Pain, moderate (4-7) Last Admin: 01/08/19 03:25 Dose: 650 mg Amlodipine Besylate (Norvasc) 10 mg PO DAILY [facility] Last Admin: 01/10/19 09:29 Dose: 10 mg Enoxaparin Sodium (Lovenox) 40 mg SC DAILY [facility] Last Admin: 01/10/19 09:29 Dose: Not Given Hydralazine HCl (Apresoline) 10 mg IVP Q6H PRN PRN Reason: Systolic Blood Pressure Hydralazine HCl (Apresoline) 50 mg PO Q8 [facility] Last Admin: 01/10/19 05:58 Dose: 50 mg Metoprolol Tartrate (Lopressor) 25 mg PO BID [facility] Last Admin: 01/10/19 09:29 Dose: 25 mg Potassium Chloride (K-Dur 20 Meq Er Tab) 40 meq PO DAILY [facility] Spironolactone (Aldactone) 25 mg PO BID [facility] Last Admin: 01/10/19 09:28 Dose: 25 mg - Labs Labs: 01/10/19 07:09 01/10/19 07:09 - Constitutional Appears: No Acute Distress - Head Exam Head Exam: ATRAUMATIC, NORMAL INSPECTION, NORMOCEPHALIC - Eye Exam Eye Exam: EOMI, Normal appearance, PERRL. absent: Scleral icterus Pupil Exam: NORMAL ACCOMODATION - ENT Exam ENT Exam: Mucous Membranes Moist - Neck Exam Additional comments: supple - Respiratory Exam Respiratory Exam: Clear to Ausculation Bilateral, NORMAL BREATHING PATTERN. absent: Rales, Rhonchi, Wheezes - Cardiovascular Exam Cardiovascular Exam: REGULAR RHYTHM, +S1, +S2 - GI/Abdominal Exam GI & Abdominal Exam: Soft, Normal Bowel Sounds. absent: Tenderness - Extremities Exam Extremities Exam: Pedal Edema (mild non-pitting). 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 Not taking meds x 1 month due to stress from taking care of 1-year old baby. (1) Persistent HTN - improving Likely secondary With LVH and diastolic dysfunction Metoprolol 25 BID, Norvasc 10, hydralazine 50q8, aldactone 50 bid hydralazine PRN aldosterone: 21; renin 0.19 Aldosterone:renin: pending____ Cortisol, low at 2.1. Will repeat it at 8AM still low at 3. TSH normal/high Total T4, questionable sick euthyroid CXR: cardiomegaly Echo: EF 68, LVH Follow up with Dr Law outpatient (2) HypoK and alkalosis Start K-dur 40 daily replete K PRN. Aldactone is increased to help the K (3) Questionable Conn's syndrome Pending 24-hr U(aldosterone) result s/p salt loading CT A/P: neg adrenal adenoma (4) Hypocortisolism. 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 cyst like. MRI pituitary as needed Follow up with Dr Jorge outpatient (5) Generalized body ache Likely from low K - resolved CK level, U/A neg. s/r/d/w Dr Law
[2019-01-10 12:27] LABS: ALDO/PRA RATIO 95.5 Ratio (0.9-28.9)
[2019-01-10] MEDS: Potassium Chloride 20 mEq ER Tab PO SCH (12:27)
--- NOTE | 2019-01-10 18:09 | PN ---
DATE: 01/10/2019 ENDOCRINOLOGY FOLLOWUP NOTE LOCATION: In room 552. SUBJECTIVE: This is a 28-year-old female with known history of Conn's syndrome, presenting here with marked hypokalemia, accelerated hypertension and is now being followed closely for metabolic management. She also had low normal cortisol value and underwent a Cortrosyn stimulating test yesterday as noted and patent. Her baseline post-stimulation cortisol levels were actually normal and this excluded the possibility of underlying hypoadrenalism or adrenal insufficiency. PLAN OF MANAGEMENT: We will obtain serial chemistries and supplement accordingly as needed. We will also await the results of the ACTH levels, which with a very rare ectopic ACTH syndrome versus the more common Conn's syndrome with hyperaldosteronism and hypokalemia as of today. We will obtain serial chemistries and supplement accordingly as needed. Theodora Jorge MD
[2019-01-11 07:49] VITALS: TEMP 98.4; O2SAT 96
[2019-01-11 08:38] LABS: BASO # 0.1 K/uL (0.0-0.2); BASO % 1.1 % (0.0-2.0); EOS # 0.3 K/uL (0.0-0.7); EOS % 3.3 % (0.0-4.0); HEMOGLOBIN 12.6 g/dL (11.0-16.0); LYMPH # 2.5 K/uL (1.0-4.3); LYMPH % 30.3 % (20.0-40.0); MEAN CELL VOLUME 79.4 fL (81.0-99.0); MEAN CORPUSCULAR HEMOGLOBIN 27.3 pg (27.0-31.0); MEAN CORPUSCULAR HGB CONC 34.4 g/dL (33.0-37.0); MEAN PLATELET VOLUME 8.3 fL (7.2-11.7); MONO # 0.4 K/uL (0.0-0.8); MONO % 5.2 % (0.0-10.0); NEUT % 60.1 % (50.0-75.0); NRBC % 0.1 % (0.0-2.0); RBC 4.61 Mil/uL (3.80-5.20); RED CELL DISTRIBUTION WIDTH 15.5 % (11.5-14.5); WHITE BLOOD COUNT 8.3 K/uL (4.8-10.8)
[2019-01-11 08:45] LABS: ALB/GLOB RATIO 1.1 (1.0-2.1); ALBUMIN 4.2 g/dL (3.5-5.0); ALT/SGPT 19 U/L (9-52); AST/SGOT 21 U/L (14-36); BLOOD UREA NITROGEN 14 mg/dL (7-17); CALCIUM 9.4 mg/dl (8.6-10.4); GFR NON-AFRICAN AMERICAN > 60
[2019-01-11 09:51] VITALS: RESP 18
[2019-01-11] MEDS: Potassium Chloride 20 mEq ER Tab PO SCH (09:52)
[2019-01-11] MEDS: Enoxaparin 40 mg Syringe SC SCH ×2 (09:52→09:53)
--- NOTE | 2019-01-11 09:59 | CP.PCM.DIS ---
Provider - Provider Date of Admission: 01/05/19 12:40 Attending physician: Ayden Mejía DO Consults: 01/05/19 13:23 Physician Consult Routine Comment: Consulting Provider: Avinash Law Consulting Physician: Avinash Law Reason for Consult: Conn's disease, hypertensive, low K. 01/05/19 13:24 Physician Consult Routine Comment: Consulting Provider: Theodora Jorge Consulting Physician: Theodora Jorge Reason for Consult: Conn's disease. Time Spent in preparation of Discharge (in minutes): 31 Diagnosis - Discharge Diagnosis (1) Conn disease Status: Acute Hospital Course - Lab Results Lab Results: Most Recent Lab Values WBC 8.3 K/uL (4.8-10.8) 01/11/19 08:10 RBC 4.61 Mil/uL (3.80-5.20) 01/11/19 08:10 Hgb 12.6 g/dL (11.0-16.0) 01/11/19 08:10 Hct 36.6 % (34.0-47.0) 01/11/19 08:10 MCV 79.4 fL (81.0-99.0) L 01/11/19 08:10 MCH 27.3 pg (27.0-31.0) 01/11/19 08:10 MCHC 34.4 g/dL (33.0-37.0) 01/11/19 08:10 RDW 15.5 % (11.5-14.5) H 01/11/19 08:10 Plt Count 443 K/uL (130-400) H 01/11/19 08:10 MPV 8.3 fL (7.2-11.7) 01/11/19 08:10 Neut % (Auto) 60.1 % (50.0-75.0) 01/11/19 08:10 Lymph % (Auto) 30.3 % (20.0-40.0) 01/11/19 08:10 Elk % (Auto) 5.2 % (0.0-10.0) 01/11/19 08:10 Eos % (Auto) 3.3 % (0.0-4.0) 01/11/19 08:10 Baso % (Auto) 1.1 % (0.0-2.0) 01/11/19 08:10 Neut # (Auto) 5.0 K/uL (1.8-7.0) 01/11/19 08:10 Lymph # (Auto) 2.5 K/uL (1.0-4.3) 01/11/19 08:10 Elk # (Auto) 0.4 K/uL (0.0-0.8) 01/11/19 08:10 Eos # (Auto) 0.3 K/uL (0.0-0.7) 01/11/19 08:10 Baso # (Auto) 0.1 K/uL (0.0-0.2) 01/11/19 08:10 Sodium 141 mmol/L (132-148) 01/11/19 08:10 Potassium 3.3 mmol/L (3.6-5.2) L 01/11/19 08:10 Chloride 102 mmol/L (98-107) 01/11/19 08:10 Carbon Dioxide 26 mmol/L (22-30) 01/11/19 08:10 Anion Gap 15 (10-20) 01/11/19 08:10 BUN 14 mg/dL (7-17) 01/11/19 08:10 Creatinine 0.9 mg/dL (0.7-1.2) 01/11/19 08:10 Est GFR ( Amer) > 60 01/11/19 08:10 Est GFR (Non-Af Amer) > 60 01/11/19 08:10 POC Glucose (mg/dL) 114 mg/dL (65-110) H 01/11/19 06:32 Random Glucose 92 mg/dL (65-105) D 01/11/19 08:10 Calcium 9.4 mg/dl (8.6-10.4) 01/11/19 08:10 Phosphorus 3.7 mg/dL (2.5-4.5) 01/11/19 08:10 Magnesium 2.1 mg/dL (1.6-2.3) 01/11/19 08:10 Total Bilirubin 0.7 mg/dL (0.2-1.3) 01/11/19 08:10 AST 21 U/L (14-36) 01/11/19 08:10 ALT 19 U/L (9-52) 01/11/19 08:10 Alkaline Phosphatase 91 U/L (38-126) 01/11/19 08:10 Total Creatine Kinase 150 U/L (30-135) H 01/07/19 08:00 Troponin I < 0.0120 ng/mL (0.00-0.120) 01/05/19 08:09 NT-Pro-B Natriuret Pep 101 pg/mL (0-450) 01/05/19 08:09 Total Protein 8.2 g/dL (6.3-8.3) 01/11/19 08:10 Albumin 4.2 g/dL (3.5-5.0) 01/11/19 08:10 Globulin 4.0 gm/dL (2.2-3.9) H 01/11/19 08:10 Albumin/Globulin Ratio 1.1 (1.0-2.1) 01/11/19 08:10 Renin 0.22 ng/mL/h (0.25-5.82) L 01/06/19 07:02 Aldosterone 14 ng/dL (see note) 01/06/19 07:02 Aldosterone/Renin Ratio 95.5 Ratio (0.9-28.9) H 01/06/19 07:02 Thyroxine (T4) 11.4 ug/dL (5.5-11.0) H 01/06/19 07:02 TSH 3rd Generation 1.77 mIU/L (0.46-4.68) 01/06/19 07:02 Cortisol AM Sample 20.5 ug/dL (4.46-22.7) 01/09/19 08:08 ACTH 7 pg/mL (6-50) 01/09/19 09:31 Urine Color Straw (YELLOW) 01/05/19 14:09 Urine Clarity Clear (Clear) 01/05/19 14:09 Urine pH 8.0 (5.0-8.0) 01/05/19 14:09 Ur Specific Silas 1.006 (1.003-1.030) 01/05/19 14:09 Urine Protein Negative mg/dL (NEGATIVE) 01/05/19 14:09 Urine Glucose (UA) Normal mg/dL (Normal) 01/05/19 14:09 Urine Ketones Negative mg/dL (NEGATIVE) 01/05/19 14:09 Urine Blood Negative (NEGATIVE) 01/05/19 14:09 Urine Nitrate Negative (NEGATIVE) 01/05/19 14:09 Urine Bilirubin Negative (NEGATIVE) 01/05/19 14:09 Urine Urobilinogen Normal mg/dL (0.2-1.0) 01/05/19 14:09 Ur Leukocyte Esterase Neg Jennifer/uL (Negative) 01/05/19 14:09 Urine WBC (Auto) < 1 /hpf (0-5) 01/05/19 14:09 Urine RBC (Auto) 1 /hpf (0-3) 01/05/19 14:09 Ur Squamous Epith Cells 1 /hpf (0-5) 01/05/19 14:09 Urine Collection Time 24 HRS 01/09/19 15:28 Urine Total Volume 2825 mL 01/09/19 15:28 Creatinine Clearance 134.0 mL/min (87-107) H 01/09/19 15:28 Urine HCG, Qual Negative (NEGATIVE) 01/05/19 14:09 Influenza Typ A,B (EIA) Negative for flu a/b (NEGATIVE) 01/06/19 16:25 - Hospital Course Hospital Course: This is a very nice 28 year old female who came to [facility] ER on 01/04/2019 because family members were concerned of very high blood pressure. The patient was very pleasant, she reported headache however other than this did not have much complaints and the majority of the information was via discussing with her family members over the phone. Patient is 28 years old, however family explain that there is a history of alcohol exposure and so her mental state is that of about a 13 yr old. The family explain that since age 10, the patient has always had elevated HTN and low K. Since age 10 she has been on medication for HTN and low K. Then about a year and half ago she became and while hospitalized had severe HTN and she was said to have had a work up for Conn's Disease (primary hyperaldosteronism) and the family explained to us that she has to be on spironolactone for the hyperaldosteronism state. The family explain that her HTN was well controlled but what happened was while at home caring for the patient became very stressed out and stopped taking the medication. In the ER on 01/04 her systolic BP was 200 and her K was 2.5 While here she has had a renal nuclear scan, and also CT of the abdomen and pel vis. She also had serum and urine aldosterone studies, ACTH studies, Morning Cortisol studies and also Renin and aldosterone/renin levels. The imaging here did not show an adrenal mass. There were very low renin levels of 0.19 and 0.22. There was a very high of 95. She has been restarted on her aldactone, her K is better now with replacmeent as well and she is also on hydrazine PO TID as well. She no longer reports headache now that her BP is lower. Also no weakness as well. Discharge Exam - Head Exam Head Exam: ATRAUMATIC, NORMOCEPHALIC - Eye Exam Eye Exam: EOMI, Normal appearance - ENT Exam ENT Exam: Mucous Membranes Moist - Respiratory Exam Respiratory Exam: Clear to PA & Lateral, NORMAL BREATHING PATTERN, UNREMARKABLE - Cardiovascular Exam Cardiovascular Exam: REGULAR RHYTHM - GI/Abdominal Exam GI & Abdominal Exam: Normal Bowel Sounds, Unremarkable - Neurological Exam Neurological exam: Alert, Normal Gait, Oriented x3 - Psychiatric Exam Psychiatric exam: Normal Affect, Normal Mood Discharge Plan - Follow Up Plan Condition: GUARDED Disposition: HOME/ ROUTINE Instructions: Hypokalemia (DC), Hypokalemia (DC), Hypokalemia (GEN), Hypertension (DC), Hypertension (GEN) Referrals: Theodora Jorge MD [Medical Doctor] - Avinash Law MD [Staff Provider] -
[2019-01-11] MEDS ORDERED: Potassium Chloride 10 mEq ER Tab PO ONE (10:19)
--- NOTE | 2019-01-11 12:06 | PN ---
DATE: 01/11/2019 ENDOCRINOLOGY FOLLOWUP NOTE LOCATION: In room 552. SUBJECTIVE: This is a 28-year-old female with recent admission for marked hypokalemia and concomitant accelerated hypertension with underlying known history of Conn's syndrome and is now being followed closely for metabolic management. Just received IV and oral potassium supplementation as given. LABORATORY DATA: Her repeat chemistry shows a BUN of 14, sodium 141, potassium 3.3, chloride 102, CO2 26, glucose 92, and creatinine 0.9. Her glycemic levels are fluctuating, but improved and have ranged from 105-114 mg per dL. Her Cortrosyn stimulation test was reported as normal as noted. Her ACTH levels are still pending at this time. 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 The diagnostic question is whether we are dealing with an aldosterone producing adenoma versus bilateral adrenal hyperplasia which has yet to be confirmed as all of the CAT scan of the abdomen and pelvis did not reveal any of the aforementioned. A real and remote possibility would be the so called ectopic adrenocorticotropic hormone syndrome. PLAN OF MANAGEMENT: We will concur with the potassium supplementation as given. We will obtain serial chemistries accordingly. We will also continue the antihypertensive combination therapy as given. We will follow. Theodora Jorge MD
[2019-01-11 13:26] VITALS: BP 130/84; PULSE 90
--- NOTE | 2019-01-11 15:19 | CP.PCM.PN ---
Subjective - Date & Time of Evaluation Date of Evaluation: 01/11/19 Time of Evaluation: 14:30 - Subjective Subjective: Patient ready to go home; no shortness of breath; Objective - Vital Signs/Intake and Output Vital Signs (last 24 hours): Temp Pulse Resp BP Pulse Ox 98.4 F 90 18 130/84 96 01/11/19 07:00 01/11/19 13:24 01/11/19 09:50 01/11/19 13:24 01/11/19 09:50 - Labs Labs: 01/11/19 08:10 01/11/19 08:10 - Constitutional Appears: Non-toxic, No Acute Distress Assessment and Plan (1) Hypertensive urgency Assessment & Plan: With previous diagnosis of Conn's syndrome; repeat workup showed high kylah/PRA ratio, awaiting result for confirmatory 24 hr urine kylah after salt loading; otherwise, restarted on aldactone 2 days ago, dose increased to 50 mg bid, cont inue same as outpatient along with norvasc, metroprolol and hydralazine; will continue KCl 40 meq daily as well for hypokalemia (iimproved); 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
[2019-01-11] MEDS ORDERED: SPIRONOLACTONE 50 MG PO SCH (18:00)
[2019-01-12] MEDS ORDERED: POTASSIUM CHLORIDE 40 MG PO SCH (10:00)
== END 2019-01-11 14:50 | disposition home or self-care (01) | DRG 300 ==
LOC: C.ER 06:07 → C.9E 12:40 → C.5S 13:56
PROVIDERS: ADMIT Hospitalist; ATTEND Hospitalist
DX: E26.01 Conn's syndrome (principal); E87.6 Hypokalemia; Q86.0 Fetal alcohol syndrome (dysmorphic); D35.00 Benign neoplasm of unspecified adrenal gland; E26.09 Other primary hyperaldosteronism; I16.9 Hypertensive crisis, unspecified; G47.33 Obstructive sleep apnea (adult) (pediatric); Z91.19 Patient's noncompliance with other medical treatment and regimen; Z91.14 Patient's other noncompliance with medication regimen; Z53.20 Procedure and treatment not carried out because of patient's decision for unspecified reasons